=== PATIENT | female | born 1950 | race Caucasian/White ===

== ENCOUNTER 2024-03-01 21:57 | Emergency (ER) | payer MEDICARE, OTHER ==
--- NOTE | 2024-03-01 22:07 | ED ---
Fall HPI - General Stated Complaint: Fall Time Seen by Provider: 03/01/24 22:07 Source: patient, RN notes reviewed - History of Present Illness Initial Comments: This is a 74-year-old female with a past medical history of congestive heart failure, atrial fibrillation not on blood thinners, and COPD who presents the emergency department via EMS for chief complaint of a fall. Patient states that she was in her kitchen and felt her legs give way that has happened in the past while she was using her walker and fell forward striking her head. She states that she called out for help where her neighbor heard her and immediately called EMS. Patient was transported via EMS with c-collar in place. Patient denies loss of consciousness at the time of the fall. She denies extremity injuries or pain. She is endorsing a mild posterior head pain with headache. - Related Data Allergies Allergy/AdvReac Type Severity Reaction Status Date / Time No Known Allergies Allergy Verified 10/12/21 21:02 Review of Systems ROS Statement: Those systems with pertinent positive or pertinent negative responses have been documented in the HPI. ROS Other: All systems not noted in ROS Statement are negative. Past Medical History Past Medical History: COPD, Diabetes Mellitus History of Any Multi-Drug Resistant Organisms: None Reported Past Surgical History: Orthopedic Surgery Additional Past Surgical History / Comment(s): carpal tunnel Past Psychological History: No Psychological Hx Reported Smoking Status: Never smoker Past Alcohol Use History: None Reported Past Drug Use History: None Reported General Exam General appearance: alert, in no apparent distress, obese Eye exam: Present: normal appearance, PERRL, EOMI. Absent: scleral icterus, conjunctival injection, periorbital swelling ENT exam: Present: normal exam, mucous membranes moist Neck exam: Present: normal inspection. Absent: tenderness, meningismus, lymphadenopathy Respiratory exam: Present: normal lung sounds bilaterally. Absent: respiratory distress, wheezes, rales, rhonchi, stridor Cardiovascular Exam: Present: regular rate, normal rhythm, bradycardia, normal heart sounds. Absent: systolic murmur, diastolic murmur, rubs, gallop, clicks GI/Abdominal exam: Present: soft, normal bowel sounds. Absent: distended, tenderness, guarding, rebound, rigid Extremities exam: Present: normal inspection, full ROM, normal capillary refill, pedal edema, other (bilateral LE 2+ edema). Absent: tenderness, joint swelling, calf tenderness Back exam: Present: normal inspection Neurological exam: Present: alert, oriented X3, CN II-XII intact Skin exam: Present: warm, dry, intact, normal color. Absent: rash Course Vital Signs 03/01/24 03/02/24 03/02/24 22:11 00:19 02:21 Temperature 97.9 F Pulse Rate 39 L 37 L 45 L Respiratory 17 17 18 Rate Blood Pressure 94/57 93/42 113/55 O2 Sat by Pulse 96 93 L 98 Oximetry Medical Decision Making - Medical Decision Making Was pt. sent in by a medical professional or institution (, PA, HISTOLOGY SUPERVISOR, urgent care, hospital, or longterm...) When possible be specific @ -No Did you speak to anyone other than the patient for history (EMS, parent, family, police, friend...)? What history was obtained from this source @ -Patient's daughter is at bedside stating that patient was recently admitted to the hospital and is followed up outpatient with her primary care provider and museum archivist where she will undergo Watchman procedure placement scheduled in April and is currently not on blood thinners. Additionally, patient's daughter at bedside states that the patient has a history of bradycardia and hypotension is this is normal for her. Patient has been taking her medications as prescribed. Did you review nursing and triage notes (agree or disagree)? Why? @ -I reviewed and agree with nursing and triage notes Were old charts reviewed (outside hosp., previous admission, EMS record, old EKG, old radiological studies, urgent care reports/EKG's, longterm records)? Report findings @ -No old charts were reviewed Differential Diagnosis (chest pain, altered mental status, abdominal pain women, abdominal pain men, vaginal bleeding, weakness, fever, dyspnea, syncope, headache, dizziness, GI bleed, back pain, seizure, CVA, palpatations, mental health, musculoskeletal)? @ -Contusion, concussion, intracranial hemorrhage, subdural hematoma, skull fracture, this list is not all inclusive EKG interpreted by me (3pts min.). @ -Pleated at 2249 atrial fibrillation with slow ventricular response ventricular rate of 38, QRS 98, QTc 497. No acute signs of ischemia. There is minimal changes compared to previous EKG completed X-rays interpreted by me (1pt min.). @ -None done CT interpreted by me (1pt min.). @ -CT of the head and cervical spine without contrast reveals no evidence of acute hemorrhage and no cervical fracture or subluxation U/S interpreted by me (1pt. min.). @ -None done What testing was considered but not performed or refused? (CT, X-rays, U/S, labs)? Why? @ -None What meds were considered but not given or refused? Why? @ -None Did you discuss the management of the patient with other professionals (professionals i.e. , PA, HISTOLOGY SUPERVISOR, lab, RT, psych nurse, clinical social work therapist, soubrette, teacher, highway patrol officer, upper caser)? Give summary @ -No Was smoking cessation discussed for >3mins.? @ -No Was critical care preformed (if so, how long)? @ -No Were there social determinants of health that impacted care today? How? (Homelessness, low income, unemployed, alcoholism, drug addiction, transportation, low edu. Level, literacy, decrease access to med. care, skilled nursing, rehab)? @ -No Was there de-escalation of care discussed even if they declined (Discuss DNR or withdrawal of care, Hospice)? DNR status @ -No What co-morbidities impacted this encounter? (DM, HTN, Smoking, COPD, CAD, Cancer, CVA, ARF, Chemo, Hep., AIDS, mental health diagnosis, sleep apnea, morbid obesity)? @ -None Was patient admitted / discharged? Hospital course, mention meds given and route, prescriptions, significant lab abnormalities, going to OR and other p ertinent info. @ -Discharge. 74-year-old female with a fall. Patient presents via EMS with c- collar in place. Patient's vitals reveal a hypotension and bradycardia. Discussed with patient's daughter at bedside states that this is at baseline for the patient. Patient is denying chest pain, shortness of breath, difficulty breathing, headaches blurry or double vision. Neurological examination no acute findings. CT imaging of the head and neck negative for acute process. Patient is stable for discharge at this time. discussed with Dr. Luna Undiagnosed new problem with uncertain prognosis? @ -No Drug Therapy requiring intensive monitoring for toxicity (Heparin, Nitro, Insulin, Cardizem)? @ -No Were any procedures done? @ -No Diagnosis/symptom? @ -Fall Acute, or Chronic, or Acute on Chronic? @ -Acute Uncomplicated (without systemic symptoms) or Complicated (systemic symptoms)? @ -uncomplicated Side effects of treatment? @ -No Exacerbation, Progression, or Severe Exacerbation? @ -No Poses a threat to life or bodily function? How? (Chest pain, [place], [place], pneumonia, PE, COPD, DKA, ARF, appy, cholecystitis, CVA, Diverticulitis, Homicidal, Suicidal, threat to staff... and all critical care pts) @ -No Disposition Clinical Impression: Fall Disposition: HOME SELF-CARE Condition: Good Instructions (If sedation given, give patient instructions): Fall Prevention for Older Adults (ED) Additional Instructions: Return to the emergency department for any new or worsening symptoms. Is patient prescribed a controlled substance at d/c from ED?: No Referrals: Nahid Byrne MD [Primary Care Provider] - 1-2 days Time of Disposition: 01:45
[2024-03-01 22:17] VITALS: TEMP 97.9
--- NOTE | 2024-03-02 01:31 | CT ---
EXAM: CT Head Without Intravenous Contrast CLINICAL HISTORY: ITS.REASON CT Reason: fall, head/neck pain TECHNIQUE: Axial computed tomography images of the head/brain without intravenous contrast. CTDI is 45.2 mGy and DLP is 1097 mGy-cm. This CT exam was performed using one or more of the following dose reduction techniques: automated exposure control, adjustment of the mA and/or kV according to patient size, and/or use of iterative reconstruction technique. COMPARISON: No relevant prior studies available. FINDINGS: Brain: No hemorrhage or mass effect. Ventricles: No hydrocephalus. Bones/joints: Unremarkable. Soft tissues: Unremarkable. Sinuses: No air fluid level. Mastoid air cells: Clear. IMPRESSION: No acute hemorrhage, hydrocephalus, or mass effect. EXAM: CT Cervical Spine Without Intravenous Contrast CLINICAL HISTORY: ITS.REASON CT Reason: fall, head/neck pain TECHNIQUE: Axial computed tomography images of the cervical spine without intravenous contrast. CTDI is 8.8 mGy and DLP is 225.9 mGy-cm. This CT exam was performed using one or more of the following dose reduction techniques: automated exposure control, adjustment of the mA and/or kV according to patient size, and/or use of iterative reconstruction technique. COMPARISON: No relevant prior studies available. FINDINGS: Vertebrae: No acute fracture. Discs/spinal canal/neural foramina: degenerative changes. Soft tissues: No prevertebral swelling. IMPRESSION: No acute fracture or subluxation.
[2024-03-02 02:22] VITALS: BP 113/55; PULSE 45; RESP 18
== END 2024-03-02 02:22 | disposition home or self-care (01) ==
LOC: EC 21:57
CPT/HCPCS: 70450; 72125; 93005; 99284

== ENCOUNTER 2024-03-04 18:18 | Emergency (ER) | payer MEDICARE, OTHER ==
--- NOTE | 2024-03-04 18:28 | ED ---
General Adult HPI - General Stated complaint: Fall-Back Pain Time Seen by Provider: 03/04/24 18:19 Source: patient, EMS, RN notes reviewed Mode of arrival: EMS Limitations: no limitations - History of Present Illness Initial comments: Patient is a 74-year-old female presenting to the emergency department with complaints of pain in her tailbone. Patient fell on her tailbone while doing a puzzle. Patient complains of significant discomfort of this area. No other area of discomfort or concern. No head injury or loss of consciousness. No weakness. No incontinence or retention of bowel or bladder. - Related Data Allergies Allergy/AdvReac Type Severity Reaction Status Date / Time No Known Allergies Allergy Verified 03/04/24 19:40 Review of Systems ROS Statement: Those systems with pertinent positive or pertinent negative responses have been documented in the HPI. ROS Other: All systems not noted in ROS Statement are negative. Constitutional: Denies: fever Eyes: Denies: eye pain ENT: Denies: ear pain Respiratory: Denies: cough, dyspnea Cardiovascular: Denies: chest pain Gastrointestinal: Denies: abdominal pain Musculoskeletal: Reports: as per HPI Neurological: Denies: headache, weakness Past Medical History Past Medical History: COPD, Diabetes Mellitus History of Any Multi-Drug Resistant Organisms: None Reported Past Surgical History: Orthopedic Surgery Additional Past Surgical History / Comment(s): carpal tunnel Past Psychological History: No Psychological Hx Reported Smoking Status: Never smoker Past Alcohol Use History: None Reported Past Drug Use History: None Reported General Exam Limitations: no limitations General appearance: alert, in no apparent distress Head exam: Present: normocephalic Eye exam: Present: normal appearance Neck exam: Present: normal inspection Respiratory exam: Present: normal lung sounds bilaterally Cardiovascular Exam: Present: regular rate, normal rhythm GI/Abdominal exam: Present: soft. Absent: tenderness Extremities exam: Present: normal inspection Back exam: Present: tenderness (Sacral tenderness) Neurological exam: Present: alert. Absent: motor sensory deficit Expanded Motor strength exam: RLE: 5, LLE: 5 Psychiatric exam: Present: normal affect, normal mood Skin exam: Present: normal color Course Vital Signs 03/04/24 19:31 Pulse Rate 78 Respiratory 16 Rate Blood Pressure 120/62 O2 Sat by Pulse 93 L Oximetry Medical Decision Making - Medical Decision Making Was pt. sent in by a medical professional or institution (, PA, BUMP GRADER OPERATOR, urgent care, hospital, or snf...) When possible be specific @ -No Did you speak to anyone other than the patient for history (EMS, parent, family, police, friend...)? What history was obtained from this source @ -Daughter arrives and states that patient has had chronic bleeding and would like that evaluated as well. Patient has been previously admitted more than 1 time [facility] Did you review nursing and triage notes (agree or disagree)? Why? @ -I reviewed and agree with nursing and triage notes Were old charts reviewed (outside hosp., previous admission, EMS record, old EKG, old radiological studies, urgent care reports/EKG's, snf records)? Report findings @ -No old charts were reviewed Differential Diagnosis (chest pain, altered mental status, abdominal pain women, abdominal pain men, vaginal bleeding, weakness, fever, dyspnea, syncope, headache, dizziness, GI bleed, back pain, seizure, CVA, palpatations, mental health, musculoskeletal)? @ -Differential Musculoskeletal Muscular strain, contusion, ligament sprain, fracture, arthritis, septic arthritis, bursitis, cellulitis, muscle spasm, nerve compression, DVT, arterial occlusion, herpes zoster, electrolyte abnormality, tumor.... This is not meant to be in all inclusive list differential GI Bleed: Esophageal varices, aortoenteric fistula, Joy-Cote, gastritis, peptic ulcer disease, diverticulosis, inflammatory bowel disease, hemorrhoids, fissure, colitis, malignancy, Meckel's diverticulum, this is not meant to be an all-incl usive list. EKG interpreted by me (3pts min.). @ -As above X-rays interpreted by me (1pt min.). @ -X-ray of pelvis and sacrum show questionable sacral fracture CT interpreted by me (1pt min.). @ -None done U/S interpreted by me (1pt. min.). @ -None done What testing was considered but not performed or refused? (CT, X-rays, U/S, labs)? Why? @ -None What meds were considered but not given or refused? Why? @ -None Did you discuss the management of the patient with other professionals (bette german i.e. , SEAN, BUMP GRADER OPERATOR, lab, RT, psych nurse, sr. social media & mobile manager, intellectual property lawyer, teacher, staff submarine warfare officer, counter caser)? Give summary @ -Case was discussed with Dr. fierro and he did review patient's chart. He moglobin is actually improved from previous labs. BUN and creatinine are stable. He would feel comfortable with discharge with the patient Was smoking cessation discussed for >3mins.? @ -No Was critical care preformed (if so, how long)? @ -No Were there social determinants of health that impacted care today? How? (Homelessness, low income, unemployed, alcoholism, drug addiction, transportation, low edu. Level, literacy, decrease access to med. care, nursing home, rehab)? @ -No Was there de-escalation of care discussed even if they declined (Discuss DNR or withdrawal of care, Hospice)? DNR status @ -No What co-morbidities impacted this encounter? (DM, HTN, Smoking, COPD, CAD, Cancer, CVA, ARF, Chemo, Hep., AIDS, mental health diagnosis, sleep apnea, morbid obesity)? @ -None Was patient admitted / discharged? Hospital course, mention meds given and route, prescriptions, significant lab abnormalities, going to OR and other pertinent info. @ -Patient reevaluated and resting comfortably in bed. Patient is updated on results. Patient does express interest in being discharged. Patient will be discharged and recommended close follow-up with Dr. Guzman, return if worsening symptoms. Undiagnosed new problem with uncertain prognosis? @ -No Drug Therapy requiring intensive monitoring for toxicity (Heparin, Nitro, Insulin, Cardizem)? @ -No Were any procedures done? @ -No Diagnosis/symptom? @ -Sacral fracture Acute, or Chronic, or Acute on Chronic? @ -Acute Uncomplicated (without systemic symptoms) or Complicated (systemic symptoms)? @ -Complicated with chronic rectal bleeding Side effects of treatment? @ -No Exacerbation, Progression, or Severe Exacerbation? @ -No Poses a threat to life or bodily function? How? (Chest pain, [place], [place], pneumonia, PE, COPD, DKA, ARF, appy, cholecystitis, CVA, Diverticulitis, Homicidal, Suicidal, threat to staff... and all critical care pts) @ -No - Lab Data Result diagrams: 03/04/24 19:44 03/04/24 19:44 Lab Results 10/01/24 10/01/24 10/01/24 Range/Units 19:44 19:44 20:46 WBC 13.2 H (3.8-10.6) k/uL RBC 3.57 L (3.80-5.40) m/uL Hgb 11.5 (11.4-16.0) gm/dL Hct 35.6 (34.0-46.0) % MCV 99.6 (80.0-100.0) fL MCH 32.2 (25.0-35.0) pg MCHC 32.3 (31.0-37.0) g/dL RDW 15.0 (11.5-15.5) % Plt Count 172 (150-450) k/uL MPV 7.6 Neutrophils % 89 % Lymphocytes % 5 % Monocytes % 5 % Eosinophils % 1 % Basophils % 0 % Neutrophils # 11.8 H (1.3-7.7) k/uL Lymphocytes # 0.6 L (1.0-4.8) k/uL Monocytes # 0.6 (0-1.0) k/uL Eosinophils # 0.1 (0-0.7) k/uL Basophils # 0.0 (0-0.2) k/uL Hypochromasia Slight Macrocytosis Slight Sodium 139 (137-145) mmol/L Potassium 5.5 H (3.5-5.1) mmol/L Chloride 105 (98-107) mmol/L Carbon Dioxide 26 (22-30) mmol/L Anion Gap 8 mmol/L BUN 55 H (7-17) mg/dL Creatinine 1.94 H (0.52-1.04) mg/dL Est GFR (CKD-EPI)AfAm 29 (>60 ml/min/1.73 sqM) Est GFR (CKD-EPI)NonAf 25 (>60 ml/min/1.73 sqM) Glucose 137 H (74-99) mg/dL Calcium 9.8 (8.4-10.2) mg/dL Total Bilirubin 1.0 (0.2-1.3) mg/dL AST 40 H (14-36) U/L ALT 15 (4-34) U/L Alkaline Phosphatase 58 (38-126) U/L Total Protein 7.3 (6.3-8.2) g/dL Albumin 4.2 (3.5-5.0) g/dL Stool Occult Blood Positive H (Negative) Disposition Clinical Impression: Sacral fracture, Fall Disposition: HOME SELF-CARE Condition: Stable Instructions (If sedation given, give patient instructions): Fall Prevention for Older Adults (ED), Sacral Fracture (ED), Gastrointestinal Bleeding (ED) Additional Instructions: Please do follow-up with Dr. Fierro the next day or 2 for recheck. Return for increased bleeding, weakness, worsening or changing symptoms or any other concerns. Ice to sacral region. Use inflatable doughnut to sit on. Is patient prescribed a controlled substance at d/c from ED?: No Referrals: Nahid Fierro MD [Primary Care Provider] - 1-2 days Time of Disposition: 21:16
[2024-03-04] MEDS: HYDROmorphone 1 MG/ML 1 ML SYRINGE IM STA (19:46)
[2024-03-04 19:52] LABS: Basophils % (A) 0 %; Eosinophils # (A) 0.1 k/uL (0-0.7); Eosinophils % (A) 1 %; HCT 35.6 % (34.0-46.0); HGB 11.5 gm/dL (11.4-16.0); Hypochromasia Slight; Lymphocytes # (A) 0.6 k/uL (1.0-4.8); Lymphocytes % (A) 5 %; MCH 32.2 pg (25.0-35.0); MCHC 32.3 g/dL (31.0-37.0); MCV 99.6 fL (80.0-100.0); Macrocytosis Slight; Mean Platelet Volume 7.6; Monocytes # (A) 0.6 k/uL (0-1.0); Monocytes % (A) 5 %; Neutrophils # (A) 11.8 k/uL (1.3-7.7); Neutrophils % (A) 89 %; Platelet Count 172 k/uL (150-450); RBC 3.57 m/uL (3.80-5.40); WBC 13.2 k/uL (3.8-10.6)
[2024-03-04 20:00] LABS: ALT 15 U/L (4-34); AST 40 U/L (14-36); African American GFR (CKD) 29 (>60 ml/min/1.73 sqM); Albumin 4.2 g/dL (3.5-5.0); Alkaline Phosphatase 58 U/L (38-126); Anion Gap 8 mmol/L; Blood Urea Nitrogen 55 mg/dL (7-17); Calcium 9.8 mg/dL (8.4-10.2); Carbon Dioxide 26 mmol/L (22-30); Chloride 105 mmol/L (98-107); Glucose 137 mg/dL (74-99); Non-African American GFR(CKD) 25 (>60 ml/min/1.73 sqM); Potassium 5.5 mmol/L (3.5-5.1); Sodium 139 mmol/L (137-145); Total Protein 7.3 g/dL (6.3-8.2)
--- NOTE | 2024-03-04 20:27 | XR ---
EXAMINATION TYPE: XR pelvis AP view DATE OF EXAM: 03/04/2024 COMPARISON: None HISTORY: Pain, fall TECHNIQUE: AP pelvis FINDINGS: Sacroiliac joints and symphysis pubis are normal. Femoral heads articulate with the acetabu lum. No acute fractures or dislocations evident. Normal bowel gas is present. IMPRESSION: 1. No acute osseous abnormality. [facility], Workstation: [facility], 03/04/2024 8:24 PM
--- NOTE | 2024-03-04 20:29 | XR ---
EXAMINATION TYPE: XR sacrum coccyx DATE OF EXAM: 03/04/2024 COMPARISON: AP pelvis HISTORY: Fall, pain TECHNIQUE: 3 views sacrum and coccyx FINDINGS: Mild degenerative changes at the bilateral sacroiliac joints appear to be present. No spicu lated degenerative disc change and vacuum phenomenon at L5-S1 disc level In the lateral projection there is some angulation of the distal sacrum. Correlate with location of p atient's pain. Sacral fracture could be considered. The coccyx appears intact. IMPRESSION: 1. Clinical correlation recommended for distal sacral fracture [facility], Workstation: [facility], 03/04/2024 8:27 PM
[2024-03-04 22:06] VITALS: BP 113/74; PULSE 70; RESP 18; TEMP 98.8
== END 2024-03-04 22:24 | disposition home or self-care (01) ==
LOC: EC 18:18
CPT/HCPCS: 36415; 72170; 72220; 80053; 82272; 85025; 96372; 99283

== ENCOUNTER 2024-04-26 03:20 | Inpatient (IN) | payer MEDICARE, OTHER ==
--- NOTE | 2024-04-26 03:33 | ED ---
General Adult HPI - General Chief complaint: Fall Stated complaint: Fall Time Seen by Provider: 04/26/24 03:22 Source: patient, EMS Mode of arrival: EMS - History of Present Illness Initial comments: Soniya is a pleasant 74-year-old female is brought to the emergency department today by EMS for evaluation of head injury. Patient reports that she was standing in front of her attempting to put on a brief when she lost her balance fell backwards and struck her head on the toilet. Patient reports pain in the left posterior head and into her neck. Patient believes she is on a blood thinner though she does not know what medication she takes and review of previous chart states that she was not on a blood thinner. - Related Data Allergies Allergy/AdvReac Type Severity Reaction Status Date / Time No Known Allergies Allergy Verified 03/04/24 19:40 Review of Systems ROS Statement: Those systems with pertinent positive or pertinent negative responses have been documented in the HPI. ROS Other: All systems not noted in ROS Statement are negative. Past Medical History Past Medical History: COPD, Diabetes Mellitus History of Any Multi-Drug Resistant Organisms: None Reported Past Surgical History: Orthopedic Surgery Additional Past Surgical History / Comment(s): carpal tunnel Past Psychological History: No Psychological Hx Reported Smoking Status: Never smoker Past Alcohol Use History: None Reported Past Drug Use History: None Reported General Exam - General Exam Comments Initial Comments: Physical Exam GENERAL: Patient is well-developed and well-nourished. Patient is nontoxic and well-hydrated and is in no distress. HENT: Normocephalic, Atraumatic. EYES: PERRL, EOMI PULMONARY: Unlabored respirations. CARDIOVASCULAR: RRR Warm and well perfused extremities ABDOMEN: Non-distended SKIN: No rashes or bruising : Deferred NEUROLOGIC: Alert and oriented Normal speech Normal gait MUSCULOSKELETAL: Moving all extremities with no apparent injury PSYCHIATRIC: No SI/HI Course Vital Signs 04/26/24 04/26/24 03:24 05:07 Temperature 100.1 F H 98.6 F Pulse Rate 74 70 Respiratory 16 18 Rate Blood Pressure 139/65 138/57 O2 Sat by Pulse 97 98 Oximetry Medical Decision Making - Medical Decision Making Was pt. sent in by a medical professional or institution (, PA, [employer], urgent care, hospital, or penitentiary...) When possible be specific @ -No Did you speak to anyone other than the patient for history (EMS, parent, family, police, friend...)? What history was obtained from this source @ -EMS Did you review nursing and triage notes (agree or disagree)? Why? @ -I reviewed and agree with nursing and triage notes Were old charts reviewed (outside hosp., previous admission, EMS record, old EKG, old radiological studies, urgent care reports/EKG's, penitentiary records)? Report findings @ -No old charts were reviewed Differential Diagnosis (chest pain, altered mental status, abdominal pain women, abdominal pain men, vaginal bleeding, weakness, fever, dyspnea, syncope, headache, dizziness, GI bleed, back pain, seizure, CVA, palpatations, mental health)? @ -Differential Fever: Pneumonia, viral URI, endocarditis, myocarditis, pericarditis, otitis, sinusitis, peritonsillar Abscess, retropharyngeal Abscess, epiglottitis, peritonitis, appendicitis, Myra cystitis, diverticulitis, hepatitis, colitis, UTI, PID, TOA, pyelonephritis, prostatitis, epididymitis, meningitis, encephalitis, pulmonary embolism, CVA, thyroid storm, pancreatitis, adrenal crisis, cavernous sinus thrombosis, this is not meant to be an all-inclusive list. EKG interpreted by me (3pts min.). @ -As above X-rays interpreted by me (1pt min.). @ -None done CT interpreted by me (1pt min.). @ -None done U/S interpreted by me (1pt. min.). @ -None done What testing was considered but not performed or refused? (CT, X-rays, U/S, labs)? Why? @ -None What meds were considered but not given or refused? Why? @ -None Did you discuss the management of the patient with other professionals (professionals i.e. , PA, [employer], lab, RT, psych nurse, social security benefits interviewer, immigration lawyer, teacher, correction officer, caseworker protective services)? Give summary @ -No Was smoking cessation discussed for >3mins.? @ -No Was critical care preformed (if so, how long)? @ -No Were there social determinants of health that impacted care today? How? (Homelessness, low income, unemployed, alcoholism, drug addiction, transportation, low edu. Level, literacy, decrease access to med. care, halfway, rehab)? @ -No Was there de-escalation of care discussed even if they declined (Discuss DNR or withdrawal of care, Hospice)? DNR status @ -No What co-morbidities impacted this encounter? (DM, HTN, Smoking, COPD, CAD, Cancer, CVA, ARF, Chemo, Hep., AIDS, mental health diagnosis, sleep apnea, morb id obesity)? @ -None Was patient admitted / discharged? Hospital course, mention meds given and rou te, prescriptions, significant lab abnormalities, going to OR and other pertinent info. @ -Admit the patient was seen and evaluated, history is obtained from the patient And EMS. Upon arrival the patient was febrile. Labs were obtained and reviewed. Patient has urinary infection. She was treated with IV fluids and antipyretics. Given her advanced age and general debility fall at home in the setting of having urinary infection I do not feel it is safe to send her home she will be placed in observation. Patient was given a dose of Rocephin in the ER for urinary tract infection. Undiagnosed new problem with uncertain prognosis? @ -No Drug Therapy requiring intensive monitoring for toxicity (Heparin, Nitro, Insulin, Cardizem)? @ -No Were any procedures done? @ -No Diagnosis/symptom? @ -Infection, fall at home Acute, or Chronic, or Acute on Chronic? @ -Default Uncomplicated (without systemic symptoms) or Complicated (systemic symptoms)? @ -Default Side effects of treatment? @ -No Exacerbation, Progression, or Severe Exacerbation? @ -No Poses a threat to life or bodily function? How? (Chest pain, [place], NH, pneumonia, PE, COPD, DKA, ARF, appy, cholecystitis, CVA, Diverticulitis, Homicidal, Suicidal, threat to staff... and all critical care pts) @ -No - Lab Data Result diagrams: 04/26/24 03:36 04/26/24 03:36 Lab Results 04/26/24 04/26/24 04/26/24 Range/Units 03:36 03:36 03:36 WBC 11.4 H (3.8-10.6) k/uL RBC 3.37 L (3.80-5.40) m/uL Hgb 10.7 L (11.4-16.0) gm/dL Hct 33.8 L (34.0-46.0) % MCV 100.5 H (80.0-100.0) fL MCH 31.7 (25.0-35.0) pg MCHC 31.6 (31.0-37.0) g/dL RDW 15.6 H (11.5-15.5) % Plt Count 130 L (150-450) k/uL MPV 8.6 Neutrophils % 87 % Lymphocytes % 4 % Monocytes % 6 % Eosinophils % 1 % Basophils % 0 % Neutrophils # 10.0 H (1.3-7.7) k/uL Lymphocytes # 0.5 L (1.0-4.8) k/uL Monocytes # 0.7 (0-1.0) k/uL Eosinophils # 0.1 (0-0.7) k/uL Basophils # 0.0 (0-0.2) k/uL Hypochromasia Slight Macrocytosis Slight PT 12.9 H (10.0-12.5) sec INR 1.2 H (<1.2) APTT 29.0 (22.0-30.0) sec Sodium 136 L (137-145) mmol/L Potassium 3.9 (3.5-5.1) mmol/L Chloride 101 (98-107) mmol/L Carbon Dioxide 29 (22-30) mmol/L Anion Gap 6 mmol/L BUN 35 H (7-17) mg/dL Creatinine 1.70 H (0.52-1.04) mg/dL Est GFR (CKD-EPI)AfAm 34 (>60 ml/min/1.73 sqM) Est GFR (CKD-EPI)NonAf 30 (>60 ml/min/1.73 sqM) Glucose 120 H (74-99) mg/dL Plasma Lactic Acid Surendra (0.7-2.0) mmol/L Calcium 8.5 (8.4-10.2) mg/dL Total Bilirubin 1.4 H (0.2-1.3) mg/dL AST 28 (14-36) U/L ALT 15 (4-34) U/L Alkaline Phosphatase 76 (38-126) U/L Total Protein 6.4 (6.3-8.2) g/dL Albumin 3.6 (3.5-5.0) g/dL Urine Color Urine Appearance (Clear) Urine pH (5.0-8.0) Ur Specific [place] (1.001-1.035) Urine Protein (Negative) Urine Glucose (UA) (Negative) Urine Ketones (Negative) Urine Blood (Negative) Urine Nitrite (Negative) Urine Bilirubin (Negative) Urine Urobilinogen (<2.0) mg/dL Ur Leukocyte Esterase (Negative) Urine RBC (0-5) /hpf Urine WBC (0-5) /hpf Urine WBC Clumps (None) /hpf Ur Squamous Epith Cells (0-4) /hpf Urine Bacteria (None) /hpf Urine Mucus (None) /hpf Influenza Type A (PCR) (Not Detectd) Influenza Type B (PCR) (Not Detectd) RSV (PCR) (Not Detectd) SARS-CoV-2 (PCR) (Not Detectd) 04/26/24 04/26/24 04/26/24 Range/Units 03:36 04:24 05:29 WBC (3.8-10.6) k/uL RBC (3.80-5.40) m/uL Hgb (11.4-16.0) gm/dL Hct (34.0-46.0) % MCV (80.0-100.0) fL MCH (25.0-35.0) pg MCHC (31.0-37.0) g/dL RDW (11.5-15.5) % Plt Count (150-450) k/uL MPV Neutrophils % % Lymphocytes % % Monocytes % % Eosinophils % % Basophils % % Neutrophils # (1.3-7.7) k/uL Lymphocytes # (1.0-4.8) k/uL Monocytes # (0-1.0) k/uL Eosinophils # (0-0.7) k/uL Basophils # (0-0.2) k/uL Hypochromasia Macrocytosis PT (10.0-12.5) sec INR (<1.2) APTT (22.0-30.0) sec Sodium (137-145) mmol/L Potassium (3.5-5.1) mmol/L Chloride (98-107) mmol/L Carbon Dioxide (22-30) mmol/L Anion Gap mmol/L BUN (7-17) mg/dL Creatinine (0.52-1.04) mg/dL Est GFR (CKD-EPI)AfAm (>60 ml/min/1.73 sqM) Est GFR (CKD-EPI)NonAf (>60 ml/min/1.73 sqM) Glucose (74-99) mg/dL Plasma Lactic Acid Surendra 1.3 (0.7-2.0) mmol/L Calcium (8.4-10.2) mg/dL Total Bilirubin (0.2-1.3) mg/dL AST (14-36) U/L ALT (4-34) U/L Alkaline Phosphatase (38-126) U/L Total Protein (6.3-8.2) g/dL Albumin (3.5-5.0) g/dL Urine Color Yellow Urine Appearance Cloudy H (Clear) Urine pH 5.5 (5.0-8.0) Ur Specific [place] 1.012 (1.001-1.035) Urine Protein 1+ H (Negative) Urine Glucose (UA) 4+ H (Negative) Urine Ketones 1+ H (Negative) Urine Blood Moderate H (Negative) Urine Nitrite Negative (Negative) Urine Bilirubin Negative (Negative) Urine Urobilinogen 2.0 (<2.0) mg/dL Ur Leukocyte Esterase Moderate H (Negative) Urine RBC 32 H (0-5) /hpf Urine WBC 92 H (0-5) /hpf Urine WBC Clumps Few H (None) /hpf Ur Squamous Epith Cells 2 (0-4) /hpf Urine Bacteria Moderate H (None) /hpf Urine Mucus Rare H (None) /hpf Influenza Type A (PCR) Not Detected (Not Detectd) Influenza Type B (PCR) Not Detected (Not Detectd) RSV (PCR) Not Detected (Not Detectd) SARS-CoV-2 (PCR) Not Detected (Not Detectd) Disposition Clinical Impression: Fall, UTI (urinary tract infection), Weakness Disposition: [facility] Condition: Stable Is patient prescribed a controlled substance at d/c from ED?: No Referrals: Nahid Byrne MD [Primary Care Provider] - 1-2 days
[2024-04-26 03:48] LABS: Basophils % (A) 0 %; Eosinophils # (A) 0.1 k/uL (0-0.7); Eosinophils % (A) 1 %; HCT 33.8 % (34.0-46.0); HGB 10.7 gm/dL (11.4-16.0); Hypochromasia Slight; Lymphocytes # (A) 0.5 k/uL (1.0-4.8); Lymphocytes % (A) 4 %; MCH 31.7 pg (25.0-35.0); MCHC 31.6 g/dL (31.0-37.0); MCV 100.5 fL (80.0-100.0); Macrocytosis Slight; Mean Platelet Volume 8.6; Monocytes # (A) 0.7 k/uL (0-1.0); Monocytes % (A) 6 %; Neutrophils % (A) 87 %; Platelet Count 130 k/uL (150-450); RBC 3.37 m/uL (3.80-5.40); RDW 15.6 % (11.5-15.5); WBC 11.4 k/uL (3.8-10.6)
[2024-04-26] MEDS: ACETAMINOPHEN TAB 500 MG TAB PO STA (03:51)
[2024-04-26 03:56] LABS: INR 1.2 (<1.2); Prothrombin Time 12.9 sec (10.0-12.5)
--- NOTE | 2024-04-26 03:56 | XR ---
EXAMINATION TYPE: XR chest 1V portable DATE OF EXAM: 04/26/2024 COMPARISON: NONE HISTORY: Fever TECHNIQUE: Single frontal view of the chest is obtained. FINDINGS: There is no focal air space opacity, pleural effusion, or pneumothorax seen. Cardiomegaly is present. Overlying EKG leads are seen. The osseous structures are intact. IMPRESSION: Cardiomegaly without acute pulmonary infiltrate. [facility], , 04/26/2024 3:53 AM
--- NOTE | 2024-04-26 04:03 | CT ---
EXAMINATION TYPE: CT brain cspine wo con DATE OF EXAM: 04/26/2024 COMPARISON: Prior trauma CT February 22, 2024 HISTORY: fall out of bed. CT DLP: 1578.2 mGycm. Automated Exposure Control for Dose Reduction was Utilized. TECHNIQUE: CT scan of the head and cervical spine are performed without contrast. FINDINGS: There is no acute intracranial hemorrhage, mass effect, or midline shift identified. The ventricles and sulci are within normal limits in size for patient's age. Aparicio-white matter different iation fairly well maintained. The calvarium is intact. Bilateral aphakia redemonstrated. The visuali zed sinuses are clear. Cervical spine is visualized in its entirety from C1 through upper thoracic levels and demonstrates s light scoliotic curvature without evidence of acute fracture or dislocation. Prevertebral soft tissu e appears within normal limits. The C1-C2 articulation is within normal limits on the coronal images . Vertebral body heights are maintained. There is mild to moderate disc space narrowing and moderate anterior spurring at C6-C7 level redemonstrated. Upper lungs show no pneumothorax. There is medial co urse to the carotid arteries bilaterally with moderate to severe carotid plaque right greater than le ft noted. A hypodense right thyroid nodule is redemonstrated. This can be better evaluated and charac terized with dedicated thyroid ultrasound if not known finding. IMPRESSION: 1. There is no acute fracture or dislocation evident in the cervical spine. 2. No acute intracranial hemorrhage or midline shift is seen. No significant change from prior. [facility], , 04/26/2024 4:01 AM
[2024-04-26 04:08] LABS: ALT 15 U/L (4-34); AST 28 U/L (14-36); African American GFR (CKD) 34 (>60 ml/min/1.73 sqM); Albumin 3.6 g/dL (3.5-5.0); Alkaline Phosphatase 76 U/L (38-126); Anion Gap 6 mmol/L; Blood Urea Nitrogen 35 mg/dL (7-17); Calcium 8.5 mg/dL (8.4-10.2); Carbon Dioxide 29 mmol/L (22-30); Chloride 101 mmol/L (98-107); Glucose 120 mg/dL (74-99); Non-African American GFR(CKD) 30 (>60 ml/min/1.73 sqM); Potassium 3.9 mmol/L (3.5-5.1); Sodium 136 mmol/L (137-145); Total Bilirubin 1.4 mg/dL (0.2-1.3); Total Protein 6.4 g/dL (6.3-8.2)
[2024-04-26 05:43] LABS: Appearance,Urine Cloudy (Clear); Bacteria,Urine Moderate /hpf; Bilirubin,Urine Negative (Negative); Blood,Urine Moderate (Negative); Color,Urine Yellow; Glucose,Urine (UA) 4+ (Negative); Ketones,Urine 1+ (Negative); Leukocyte Esterase,Urine Moderate (Negative); Mucus,Urine Rare /hpf; Nitrite,Urine Negative (Negative); PH, Urine 5.5 (5.0-8.0); Protein,Urine 1+ (Negative); RBC,Urine 32 /hpf (0-5); Specific Gravity,Urine 1.012 (1.001-1.035); Squamous Epithelial Cell,Urine 2 /hpf (0-4); WBC,Urine 92 /hpf (0-5)
[2024-04-26] MEDS: cefTRIAXone IN SWFI 1,000 MG/10 ML SYRINGE IVP STA (06:03)
[2024-04-26] MEDS ORDERED: NALOXONE 0.4 MG/ML 1 ML VIAL IV PRN (06:14)
--- NOTE | 2024-04-26 08:46 | P.HPIM ---
History of Present Illness This is a pleasant 74 years old female with past medical history of multiple medical problems including A-fib. Patient somewhat is forgetful about her history and medication. States that her daughter is her guardian who take care of her medication. She knows she takes blood thinner but she is not sure for what reason or what it is. She presents because of recurrent fall. She states she fell in her bathroom, she slipped and hit her head. She went to urinate and she has been complaining from discomfort urination and dysuria. Also patient was feeling short of breath of 1 day duration, with dry cough but no chest pain. Of note patient also was in the emergency room for recurrent fall on 02/25 and 03/04 this month. On admission patient denies abdominal complaints. No headache or dizziness currently but she told me she feels her left upper extremity was weak. She states she uses oxygen at home. And complains from mild pain in her left leg She denies smoking alcohol or illicit drugs. On admission she had low-grade fever of 100.1. Also she has mild leukocytosis of 11.4, she has 1 blood test 1 year ago with WBC 13.2 Hemoglobin 10.7, platelet count 130 Creatinine 1.7, previously was 1.91 time on 03/04/[address] is negative for acute process Chest x-ray is showing cardiomegaly with no vascular congestion Liver enzymes are unremarkable, INR is 1.2. EKG showing A-fib with a heart rate of 38 Urine analysis suspicious for UTI, urine culture is pending Influenza A and type B, RSV, SARS (coronavirus) are undetected She received 1 dose of Rocephin in the emergency room Review of Systems Review of systems CONSTITUTIONAL: No fever, no malaise, no fatigue. HEENT: No recent visual problems or hearing problems. Denied any sore throat. CARDIOVASCULAR: No orthopnea, PND, no palpitations, no syncope. PULMONARY: No shortness of breath, no cough, no hemoptysis. GASTROINTESTINAL: No diarrhea, no nausea, no vomiting, no abdominal pain. Normoactive bowel sounds. NEUROLOGICAL: No headaches, no weakness, no numbness. HEMATOLOGICAL: Denies any bleeding or petechiae. GENITOURINARY: Denies any burning micturition, frequency, or urgency. MUSCULOSKELETAL/RHEUMATOLOGICAL: Denies any joint pain, swelling, or any muscle pain. ENDOCRINE: Denies any polyuria or polydipsia. Past Medical History Past Medical History: COPD, Diabetes Mellitus History of Any Multi-Drug Resistant Organisms: None Reported Past Surgical History: Orthopedic Surgery Additional Past Surgical History / Comment(s): carpal tunnel Past Psychological History: No Psychological Hx Reported Smoking Status: Never smoker Past Alcohol Use History: None Reported Past Drug Use History: None Reported Medications and Allergies Allergies Allergy/AdvReac Type Severity Reaction Status Date / Time No Known Allergies Allergy Verified 03/04/24 19:40 Physical Exam Vitals: Vital Signs Temp Pulse Resp BP Pulse Ox 04/26/24 08:10 65 16 120/77 96 04/26/24 07:40 98.3 F 63 18 116/70 96 04/26/24 05:07 98.6 F 70 18 138/57 98 04/26/24 03:24 100.1 F H 74 16 139/65 97 Intake and Output 04/25/24 04/26/24 04/26/24 22:59 06:59 14:59 Other: Weight 112.037 kg -GENERAL: The patient is alert and oriented x3, not in any acute distress. Well developed, well nourished. Obese, looks tired mildly tachypneic. The patient is hard of hearing (she forgot her hearing aid) HEENT: Pupils are round and equally reacting to light. EOMI. No scleral icterus. No conjunctival pallor. Normocephalic, atraumatic. No pharyngeal erythema. No thyromegaly. CARDIOVASCULAR: S1 and S2 present. No murmurs, rubs, or gallops. PULMONARY: Chest is clear to auscultation, no wheezing , no crackles. ABDOMEN: Soft, nontender, nondistended, normoactive bowel sounds. No palpable organomegaly. MUSCULOSKELETAL: No joint swelling or deformity. -EXTREMITIES: No cyanosis, clubbing, or pedal edema. Bilateral leg redness, more on the left side with scratch wound, more warm and tender on the left leg NEUROLOGICAL: Gross neurological examination did not reveal any focal deficits. SKIN: No rashes. no petechiae. Results CBC & Chem 7: 04/26/24 03:36 04/26/24 03:36 Labs: Abnormal Lab Results - Last 24 Hours (Table) 04/26/24 04/26/24 04/26/24 Range/Units 03:36 03:36 03:36 WBC 11.4 H (3.8-10.6) k/uL RBC 3.37 L (3.80-5.40) m/uL Hgb 10.7 L (11.4-16.0) gm/dL Hct 33.8 L (34.0-46.0) % MCV 100.5 H (80.0-100.0) fL RDW 15.6 H (11.5-15.5) % Plt Count 130 L (150-450) k/uL Neutrophils # 10.0 H (1.3-7.7) k/uL Lymphocytes # 0.5 L (1.0-4.8) k/uL PT 12.9 H (10.0-12.5) sec INR 1.2 H (<1.2) Sodium 136 L (137-145) mmol/L BUN 35 H (7-17) mg/dL Creatinine 1.70 H (0.52-1.04) mg/dL Glucose 120 H (74-99) mg/dL Total Bilirubin 1.4 H (0.2-1.3) mg/dL Urine Appearance (Clear) Urine Protein (Negative) Urine Glucose (UA) (Negative) Urine Ketones (Negative) Urine Blood (Negative) Ur Leukocyte Esterase (Negative) Urine RBC (0-5) /hpf Urine WBC (0-5) /hpf Urine WBC Clumps (None) /hpf Urine Bacteria (None) /hpf Urine Mucus (None) /hpf 04/26/24 Range/Units 05:29 WBC (3.8-10.6) k/uL RBC (3.80-5.40) m/uL Hgb (11.4-16.0) gm/dL Hct (34.0-46.0) % MCV (80.0-100.0) fL RDW (11.5-15.5) % Plt Count (150-450) k/uL Neutrophils # (1.3-7.7) k/uL Lymphocytes # (1.0-4.8) k/uL PT (10.0-12.5) sec INR (<1.2) Sodium (137-145) mmol/L BUN (7-17) mg/dL Creatinine (0.52-1.04) mg/dL Glucose (74-99) mg/dL Total Bilirubin (0.2-1.3) mg/dL Urine Appearance Cloudy H (Clear) Urine Protein 1+ H (Negative) Urine Glucose (UA) 4+ H (Negative) Urine Ketones 1+ H (Negative) Urine Blood Moderate H (Negative) Ur Leukocyte Esterase Moderate H (Negative) Urine RBC 32 H (0-5) /hpf Urine WBC 92 H (0-5) /hpf Urine WBC Clumps Few H (None) /hpf Urine Bacteria Moderate H (None) /hpf Urine Mucus Rare H (None) /hpf Assessment and Plan Assessment: Recurrent fall at home over the last 1 to 2 weeks Acute urinary tract infection, symptomatic Acute cellulitis of the left lower extremity Sepsis with fever and leukocytosis A-fib with slow heart rate Patient also complaining from left upper extremity weakness, rule out TIA CHF, chronic Obesity with BMI 45.2 positive occult blood in stool Forgetfulness, possible dementia. Also patient has guardian Hard of hearing Plan: Start normal saline at 75 mL/h Continue with ceftriaxone 2 g daily and follow-up culture results Consult cardiology team given her recurrent falls and bradycardia in view of her A-fib Will consult neurology service given her reported weakness in the left upper extremity Follow-up creatinine and labs. Also monitor vitals Verify home medication Resume home medication once verified Further recommendation based on the clinical course GI prophylaxis: Pepcid DVT prophylaxis PT/OT Prognosis is guarded
[2024-04-26] MEDS: SODIUM CHLORIDE 0.9% 1,000 ML IV SCH (09:05)
--- NOTE | 2024-04-26 11:52 | P.CRDCN ---
History of Present Illness Consult date: 04/26/24 History of present illness: HISTORY OF PRESENTING ILLNESS Patient is a poor historian. Very drowsy. Not able to provide good history No significant medical records documented in [facility] system at this time. History is mostly obtained from the medical charts. Presented to the hospital because of recurrent fall. She was in the bathroom slipped and hit her head. She is also been complaining of urinary discomfort. She is having low-grade fever on admission, hemoglobin 10.7, REVIEW OF SYSTEMS Unable to be obtained PHYSICAL EXAMINATION Head: Normocephalic. Eyes: Sclerae nonicteric. Neck: Brisk carotid upstroke, no jugular venous distention. Lungs: Poor inspiratory effort, diminished breath sounds due to that. Mild crackles. Heart: Regular rate and rhythm, S1-S2, mild systolic murmur audible Abdomen: Soft nontender, positive bowel sounds. Extremities: 1+ pitting edema Neuro: Drowsy but arousable,. Detailed neuro exam was not performed. ASSESSMENT Recurrent falls at home Delirium Metabolic encephalopathy UTI Cellulitis left lower extremity Sepsis Frequent PVCs Unlikely atrial fibrillation at this time. SHELLY on CKD. Creatinine 1.9 on admission. PLAN Unsure if she has prior history of any reported atrial fibrillation. Admission ECG showed sinus bradycardia heart rate 39 beats minute, telemetry shows sinus rhythm with frequent PVCs. Maintain telemetry to look for any arrhythmias. Check magnesium, TSH, NT-proBNP, lipids, HbA1c Obtain updated echocardiogram Obtain medical records from outpatient cardiology clinic if there are any Agree with neurology consult. Consider nephrology consult. Lyle Torres MD, FACC, RPVI Thank you for allowing [facility] to participate in this patient's care. Feel free to reach out in case of any followup questions. Past Medical History Past Medical History: COPD, Diabetes Mellitus History of Any Multi-Drug Resistant Organisms: None Reported Past Surgical History: Orthopedic Surgery Additional Past Surgical History / Comment(s): carpal tunnel Past Psychological History: No Psychological Hx Reported Smoking Status: Never smoker Past Alcohol Use History: None Reported Past Drug Use History: None Reported Medications and Allergies Allergies Allergy/AdvReac Type Severity Reaction Status Date / Time No Known Allergies Allergy Verified 03/04/24 19:40 Physical Exam Vitals: Vital Signs Temp Pulse Resp BP Pulse Ox 04/26/24 11:03 74 18 131/95 96 04/26/24 10:02 69 20 127/73 95 04/26/24 09:18 70 20 103/72 96 04/26/24 09:01 68 16 97 04/26/24 08:10 65 16 120/77 96 04/26/24 07:40 98.3 F 63 18 116/70 96 04/26/24 05:07 98.6 F 70 18 138/57 98 04/26/24 03:24 100.1 F H 74 16 139/65 97 Intake and Output 04/25/24 04/26/24 04/26/24 22:59 06:59 14:59 Other: Weight 112.037 kg Results 04/26/24 03:36 04/26/24 03:36 Cardiac Enzymes 04/26/24 Range/Units 03:36 AST 28 (14-36) U/L Coagulation 04/26/24 Range/Units 03:36 PT 12.9 H (10.0-12.5) sec APTT 29.0 (22.0-30.0) sec CBC 04/26/24 Range/Units 03:36 WBC 11.4 H (3.8-10.6) k/uL RBC 3.37 L (3.80-5.40) m/uL Hgb 10.7 L (11.4-16.0) gm/dL Hct 33.8 L (34.0-46.0) % Plt Count 130 L (150-450) k/uL Comprehensive Metabolic Panel 04/26/24 Range/Units 03:36 Sodium 136 L (137-145) mmol/L Potassium 3.9 (3.5-5.1) mmol/L Chloride 101 (98-107) mmol/L Carbon Dioxide 29 (22-30) mmol/L BUN 35 H (7-17) mg/dL Creatinine 1.70 H (0.52-1.04) mg/dL Glucose 120 H (74-99) mg/dL Calcium 8.5 (8.4-10.2) mg/dL AST 28 (14-36) U/L ALT 15 (4-34) U/L Alkaline Phosphatase 76 (38-126) U/L Total Protein 6.4 (6.3-8.2) g/dL Albumin 3.6 (3.5-5.0) g/dL Current Medications Generic Name Dose Route Start Last Admin Trade Name Freq PRN Reason Stop Dose Admin Ceftriaxone Sodium 2 gm/ 50 mls @ 100 mls/hr 04/26/24 09:00 04/26/24 09:14 Sodium Chloride IVPB 100 mls/hr Q24HR AYLIN Administration Protocol Sodium Chloride 1,000 mls @ 75 mls/hr 04/26/24 08:45 04/26/24 09:05 Saline 0.9% IV 75 mls/hr .[id number] AYLIN Administration Naloxone HCl 0.2 mg 04/26/24 06:14 Naloxone 0.4 Mg/Ml 1 Ml Vial IV Q2M PRN Opioid Reversal Intake and Output 04/25/24 04/26/24 04/26/24 22:59 06:59 14:59 Other: Weight 112.037 kg 04/26/24 03:36 04/26/24 03:36
[2024-04-26 13:37] LABS: % Iron Saturation 3.2 (12.00-45.00)
[2024-04-26] MEDS ORDERED: DEXTROSE 50% SYRINGE 50 ML IVP PRN ×2 (14:53)
--- NOTE | 2024-04-26 15:05 | P.CNNES ---
History of Present Illness Consult date: 04/26/24 Requesting physician: Dheeraj Huang Reason for Consult: recurrent falls, right upper extremity weakness History of Present Illness: This is a 74-year-old woman who presented emergency department because of a fall. Patient states that she usually walks with a walker. Seems that she is trying to stand up and she just fell to her side on the left but denies any loss of consciousness. She denies any jerking of any extremity, urinary or bowel incontinence or tongue bite. Denies any history of seizure or strokes. She does complain that she was having urinary urgency and pain. She denies of any neck pain. Denies of any focal weakness. She does have underlying history of heart failure. Some of the workup during this hospital visit consisted of: I reviewed the lab workup. Her vitamin B12 is 576 Serum folate is 37.50 Serum glucose on presentation 120. Urine Analysis seems probable suggestive of acute urinary tract infection with leukocyte esterase moderate, urine white blood cells 92 and bacteria is moderat e. CT of the head and cervical spine is there is no acute fracture or dislocation of the cervical spine. No acute intracranial hemorrhage or midline shift. I personally reviewed the CT and agree with the report. Review of Systems As per HPI. Past Medical History Past Medical History: Atrial Fibrillation, Heart Failure, COPD, Diabetes Mellitus, GI Bleed, Hearing Disorder / Deafness, Memory Impairment, Osteoarthritis (OA), Renal Disease, Respiratory Disorder, Sleep Apnea/CPAP/BIPAP, Thyroid Disorder, Vascular Disorder Additional Past Medical History / Comment(s): c pap machine at home History of Any Multi-Drug Resistant Organisms: None Reported Past Surgical History: Appendectomy, Heart Catheterization With Stent, Hysterectomy, Orthopedic Surgery Additional Past Surgical History / Comment(s): carpal tunnel, watchman device february 2024 Past Anesthesia/Blood Transfusion Reactions: No Reported Reaction Date of Last Stent Placement:: unk Past Psychological History: Anxiety, Depression Smoking Status: Never smoker Past Alcohol Use History: None Reported Past Drug Use History: None Reported - Past Family History Father History Unknown: Yes Additional Family Medical History / Comment(s): Mother Family Medical History: Dementia Additional Family Medical History / Comment(s): alzheimers, blind, Medications and Allergies Home Medications Medication Instructions Recorded Confirmed Type Acetaminophen-Codeine 300-30mg 1 tab PO BID 04/26/24 04/26/24 History [Tylenol w/codeine #3] Amiodarone [Cordarone] 200 mg PO DAILY 04/26/24 04/26/24 History Ascorbic Acid [Vitamin C] 500 mg PO DAILY 04/26/24 04/26/24 History Aspirin EC [Ecotrin Low Dose] 81 mg PO DAILY 04/26/24 04/26/24 History Bumetanide [Bumex] 1 mg PO DAILY 04/26/24 04/26/24 History Clopidogrel [Plavix] 75 mg PO DAILY 04/26/24 04/26/24 History DULoxetine HCL [Cymbalta] 30 mg PO DAILY 04/26/24 04/26/24 History Divalproex [Depakote] 250 mg PO BID 04/26/24 04/26/24 History Docusate [Colace] 100 mg PO BID PRN 04/26/24 04/26/24 History Empagliflozin [Jardiance] 10 mg PO DAILY 04/26/24 04/26/24 History Ergocalciferol [Vitamin D2 (1250 1,250 mcg PO ALONSO 04/26/24 04/26/24 History Mcg = [id number] Iu)] Ferrous Sulfate [Feosol] 325 mg PO DAILY 04/26/24 04/26/24 History Folic Acid 1 mg PO DAILY 04/26/24 04/26/24 History Levothyroxine Sodium [Synthroid] 25 mcg PO DAILY 04/26/24 04/26/24 History Metoprolol Succinate (ER) [Toprol 50 mg PO DAILY 04/26/24 04/26/24 History Xl] Multivit-Min/Iron/Folic/Lutein 1 tab PO DAILY 04/26/24 04/26/24 History [Centrum Silver Women Tablet] Enola-3/Dha/Epa/Fish Oil [Enola-3 1 cap PO DAILY 04/26/24 04/26/24 History Fish Oil 1,000 mg Sfgl] Pantoprazole [Protonix] 40 mg PO AC-BID 04/26/24 04/26/24 History Rosuvastatin Calcium [Crestor] 5 mg PO DAILY 04/26/24 04/26/24 History allopurinoL [Zyloprim] 300 mg PO DAILY 04/26/24 04/26/24 History traZODone HCL [Desyrel] 50 mg PO HS 04/26/24 04/26/24 History Allergies Allergy/AdvReac Type Severity Reaction Status Date / Time No Known Allergies Allergy Verified 04/26/24 12:55 Physical Examination - Vital Signs Vital Signs: Vital Signs Temp Pulse Resp BP Pulse Ox 04/26/24 14:01 99.0 F 71 20 126/94 96 04/26/24 13:13 71 16 103/69 95 04/26/24 12:05 98.2 F 68 14 114/65 97 04/26/24 11:03 74 18 131/95 96 04/26/24 10:02 69 20 127/73 95 04/26/24 09:18 70 20 103/72 96 04/26/24 09:01 68 16 97 04/26/24 08:10 65 16 120/77 96 04/26/24 07:40 98.3 F 63 18 116/70 96 04/26/24 05:07 98.6 F 70 18 138/57 98 04/26/24 03:24 100.1 F H 74 16 139/65 97 Intake and Output 04/25/24 04/26/24 04/26/24 22:59 06:59 14:59 Other: Weight 112.037 kg 112.037 kg General: Lying in bed and is not in acute distress. Neuro: Somewhat limited because of patient hard of hearing but the patient is awake alert oriented to self stated that she is in the hospital and is oriented to time. Is following simple commands. No aphasia. The pupils are round equal reactive to light. Pupils are round 3 mm bilaterally. Visual covarrubias are full to confrontation. Extraocular movements intact no nystagmus. No facial weakness. No dysarthria. She is very hard of hearing that is her baseline. Motor strength is 4 out of 5 throughout Sensation is normal to touch Reflexes is 2 positive throughout. Plantars are mute. Results - Laboratory Findings CBC and BMP: 04/26/24 03:36 04/26/24 03:36 Abnormal Lab Findings: Abnormal Labs 04/26/24 04/26/24 04/26/24 03:36 03:36 03:36 WBC 11.4 H RBC 3.37 L Hgb 10.7 L Hct 33.8 L MCV 100.5 H RDW 15.6 H Plt Count 130 L Neutrophils # 10.0 H Lymphocytes # 0.5 L PT 12.9 H INR 1.2 H Sodium 136 L BUN 35 H Creatinine 1.70 H Glucose 120 H Iron % Saturation Total Bilirubin 1.4 H Folate Procalcitonin Urine Appearance Urine Protein Urine Glucose (UA) Urine Ketones Urine Blood Ur Leukocyte Esterase Urine RBC Urine WBC Urine WBC Clumps Urine Bacteria Urine Mucus 04/26/24 04/26/24 04/26/24 05:29 09:24 09:24 WBC RBC Hgb Hct MCV RDW Plt Count Neutrophils # Lymphocytes # PT INR Sodium BUN Creatinine Glucose Iron 11 L % Saturation 3.20 L Total Bilirubin Folate Procalcitonin 2.57 H Urine Appearance Cloudy H Urine Protein 1+ H Urine Glucose (UA) 4+ H Urine Ketones 1+ H Urine Blood Moderate H Ur Leukocyte Esterase Moderate H Urine RBC 32 H Urine WBC 92 H Urine WBC Clumps Few H Urine Bacteria Moderate H Urine Mucus Rare H 04/26/24 09:24 WBC RBC Hgb Hct MCV RDW Plt Count Neutrophils # Lymphocytes # PT INR Sodium BUN Creatinine Glucose Iron % Saturation Total Bilirubin Folate 37.50 H Procalcitonin Urine Appearance Urine Protein Urine Glucose (UA) Urine Ketones Urine Blood Ur Leukocyte Esterase Urine RBC Urine WBC Urine WBC Clumps Urine Bacteria Urine Mucus Assessment and Plan Assessment: This is a 74-year-old woman who present emergency department because of a fall. She has been complaining of urinary urgency and pain with urination. She denie s any loss of consciousness, jerking of any extremities tongue bite bowel or bladder incontinence. She does not have any underlying history of seizure or stroke. Her recent fall seems probable due to her underlying acute urinary tract infection Likely acute urinary tract infection Underlying very hard of hearing bilaterally Plan: 2D echo is ordered by the cardiology team is pending Hemoglobin A1c, TSH is ordered by the cardiology team I did not notice any focal weakness but seems the primary felt the patient has right upper extremity weakness therefore we will get an MRI of the brain and cervical spine. The patient has A-fib and cardiology is consulted. Will defer the rest of the medical management to primary and other specialist The plan discussed with the patient's nurse Thank you for the consultation Dr. Lipscomb will resume neurology service on 04/28/2024 A.M. Time with Patient: Greater than 30
[2024-04-26 17:24] LABS: Glucose,Whole Blood 146 mg/dL (70-110)
[2024-04-26] MEDS: INSULIN ASPART (NovoLOG) 100 UNIT/ML VIAL SQ SCH (17:41)
[2024-04-26 20:27] LABS: Glucose,Whole Blood 138 mg/dL (70-110)
[2024-04-26] MEDS: NYSTATIN 100,000 UNIT/GM POWD 15 GM TOPICAL SCH (21:05)
[2024-04-26] MEDS: ZINC OXIDE PASTE (Z-GUARD) 1 APPLIC TOPICAL PRN (21:05)
[2024-04-26 23:12] LABS: NT-Pro-B-Type Natriuretic Pept 11628 pg/mL (0-125)
[2024-04-26 23:21] LABS: Chol/HDL Ratio 2.53 Ratio; LDL Cholesterol,Calculated 119.6 mg/dL (0.0-131.0); Magnesium 1.8 mg/dL (1.5-2.4); VLDL Calculation 13.98 mg/dL (5.00-40.00)
[2024-04-27 07:59] LABS: Glucose,Whole Blood 140 mg/dL (70-110)
--- NOTE | 2024-04-27 08:06 | CA ---
Transthoracic Echo Report Name: Soniya Griffin Age: 74 Gender: F : 1950 Exam Date: 04/26/2024 15:18 Exam Location: [facility] Ht (in): 62 Wt (lb): 247 Ordering Physician: Lyle Torres MD ([id number]) Attending/Referring Phys: Interline Clerk Kita Cornejo RDCS Procedure CPT: Indications: chf Cardiac Hx: Technical Quality: Very technically difficult study Contrast 1: Definity Total Dose (mL): 2 Contrast 2: Total Dose (mL): MEASUREMENTS (Male / Female) Normal Values 2D ECHO LV Diastolic Diameter PLAX 5.1 cm 4.2 - 5.9 / 3.9 - 5.3 cm LV Systolic Diameter PLAX 3.6 cm IVS Diastolic Thickness 1.3 cm 0.6 - 1.0 / 0.6 - 0.9 cm LVPW Diastolic Thickness 1.3 cm 0.6 - 1.0 / 0.6 - 0.9 cm LV Relative Wall Thickness 0.5 RV Internal Dim ED PLAX 4.3 cm LVOT Diameter 2.1 cm LA Volume 77.1 cm??? 18 - 58 / 22 - 52 cm??? LA Volume Index 33.8 cm???/m??? 16 - 28 cm???/m??? DOPPLER AV Peak Velocity 153.5 cm/s AV Peak Gradient 9.4 mmHg AV Mean Velocity 104.9 cm/s AV Mean Gradient 5.0 mmHg AV Velocity Time Integral 27.5 cm LVOT Peak Velocity 77.3 cm/s LVOT Peak Gradient 2.4 mmHg LVOT Velocity Time Integral 12.0 cm LVOT Stroke Volume 41.6 cm??? LVOT Stroke Volume Index 19.9 ml/m??? LVOT Cardiac Index 1332.7 cm???/min???m??? AV Area Cont Eq vti 1.5 cm??? AV Area Cont Eq pk 1.7 cm??? MV Area PHT 5.8 cm??? Mitral E Point Velocity 125.2 cm/s Mitral A Point Velocity 32.6 cm/s Mitral E to A Ratio 3.8 MV Deceleration Time 130.7 ms MV E' Velocity 3.3 cm/s Mitral E to MV E' Ratio 38.5 TR Peak Velocity 331.3 cm/s TR Peak Gradient 43.9 mmHg Right Atrial Pressure 20.0 mmHg Pulmonary Artery Systolic Pressu 63.9 mmHg Right Ventricular Systolic Press 63.9 mmHg FINDINGS Left Ventricle Left ventricular cavity size normal. Mildly increased left ventricular wall thickness. Reduced global left ventricular systolic function. Flattened septum in diastole consistent with right ventricle volume overload. Left ventricular ejection fraction is estimated at 40 %. Grade 2 diastolic dysfunction. Right Ventricle Severe right ventricular dilatation. Reduced right ventricular global systolic function. Severe pulmonary hypertension. Right ventricular systolic pressure estimated at 64 mm hg. Right Atrium Right atrium not well visualized. Left Atrium Mildly increased left atrial volume. Mildly increased left atrial area. Mitral Valve Mitral valve not well visualized. Mild mitral annular calcification. No mitral stenosis. Mild mitral regurgitation. Aortic Valve Aortic valve not well visualized. No aortic stenosis. Tricuspid Valve Moderate tricuspid regurgitation. Pulmonic Valve Pulmonic valve not well visualized. Pericardium No pericardial effusion. Aorta Normal size aortic root and proximal ascending aorta. CONCLUSIONS LVEF 40% Grade II diastolic dysfunction Severe RV dilatation with signs of pressure and volume overload. RVSP 64 mmHg Mild mitral regurgitation Moderate to severe tricuspid regurgitation Severe pulmonary hypertension No pericardial effusion Previewed by: Dr Lyle Torres (Electronically Signed) Final Date: 27 April 2024 08:05
--- NOTE | 2024-04-27 08:55 | P.PN ---
Subjective Progress Note Date: 04/27/24 HISTORY OF PRESENTING ILLNESS Patient is a poor historian. Very drowsy. Not able to provide good history No significant medical records documented in [facility] system at this time. History is mostly obtained from the medical charts. Presented to the hospital because of recurrent fall. She was in the bathroom slipped and hit her head. She is also been complaining of urinary discomfort. She is having low-grade fever on admission, hemoglobin 10.7, Progress note April 27 No evidence of atrial fibrillation last 24 hours of telemetry monitoring. Echo showed signs of severe pulmonary hypertension. PHYSICAL EXAMINATION Head: Normocephalic. Eyes: Sclerae nonicteric. Neck: Brisk carotid upstroke, no jugular venous distention. Lungs: Poor inspiratory effort, diminished breath sounds due to that. Mild crackles. Heart: Regular rate and rhythm, S1-S2, mild systolic murmur audible Abdomen: Soft nontender, positive bowel sounds. Extremities: 1+ pitting edema Neuro: Drowsy but arousable,. Detailed neuro exam was not performed. ASSESSMENT Severe pulmonary hypertension with RV pressure and volume overload. Right-sided heart failure with chronic lower extremity swelling Recurrent falls at home Delirium Metabolic encephalopathy UTI Cellulitis left lower extremity Sepsis Frequent PVCs Unlikely atrial fibrillation at this time. SHELLY on CKD. Creatinine 1.9 on admission. Cardiac testing Echo showed LVEF 55%, severe R we will dilatation with signs of RV pressure and volume overload with severe pulmonary hypertension. PLAN Unsure if she has prior history of any reported atrial fibrillation. Admission ECG showed sinus bradycardia heart rate 39 beats minute, telemetry shows sinus rhythm with intermittent PVCs. I recommend obtaining medical records from the cardiology clinic. If no prior echo to compare with, and if this finding of severe pulmonary hypertension is new, consider right heart catheterization and lung VQ scan to evaluate etiology of severe pulm hypertension. Maintain telemetry to look for any arrhythmias. Agree with neurology consult. Consider nephrology consult. Objective - Vital Signs Vital signs: Vital Signs Temp 99.7 F H 04/27/24 08:00 Pulse 68 04/27/24 08:00 Resp 19 04/27/24 08:00 BP 154/71 04/27/24 08:00 Pulse Ox 96 04/27/24 08:00 FiO2 Intake & Output 04/26/24 04/27/24 04/27/24 18:59 06:59 18:59 Intake Total 640 825 Output Total 400 500 Balance 240 325 Weight 112.037 kg Intake: Intake, IV Titration 825 Amount Sodium Chloride 0.9% 1, 825 000 ml @ 75 mls/hr IV . [id number] [facility] Rx#:[id number] Oral 640 Output: Urine 400 500 Other: Voiding Method External Catheter External Catheter # Voids 1 - Labs CBC & Chem 7: 04/26/24 03:36 04/26/24 03:36 Labs: Abnormal Lab Results - Last 24 Hours (Table) 04/26/24 04/26/24 04/26/24 Range/Units 03:36 09:24 09:24 POC Glucose (mg/dL) (70-110) mg/dL Iron 11 L (50-170) UG/DL % Saturation 3.20 L (12.00-45.00) NT-Pro-B Natriuret Pep 47062 H (0-125) pg/mL Cholesterol 221.00 H (0.00-200.00) mg/dL HDL Cholesterol 87.40 H (40.00-60.00) mg/dL Folate (4.40-31.00) ng/mL Procalcitonin 2.57 H (0.02-0.50) ng/mL 04/26/24 04/26/24 04/26/24 Range/Units 09:24 17:20 20:21 POC Glucose (mg/dL) 146 H 138 H (70-110) mg/dL Iron (50-170) UG/DL % Saturation (12.00-45.00) NT-Pro-B Natriuret Pep (0-125) pg/mL Cholesterol (0.00-200.00) mg/dL HDL Cholesterol (40.00-60.00) mg/dL Folate 37.50 H (4.40-31.00) ng/mL Procalcitonin (0.02-0.50) ng/mL 04/27/24 Range/Units 07:50 POC Glucose (mg/dL) 140 H (70-110) mg/dL Iron (50-170) UG/DL % Saturation (12.00-45.00) NT-Pro-B Natriuret Pep (0-125) pg/mL Cholesterol (0.00-200.00) mg/dL HDL Cholesterol (40.00-60.00) mg/dL Folate (4.40-31.00) ng/mL Procalcitonin (0.02-0.50) ng/mL
[2024-04-27 09:25] LABS: Basophils # (A) 0.01 X 10*3/uL (0.00-0.10); Basophils % (A) 0.1 %; Eosinophils # (A) 0.01 X 10*3/uL (0.04-0.35); Eosinophils % (A) 0.1 %; HCT 31.8 % (37.2-46.3); HGB 9.7 g/dL (12.0-15.0); Lymphocytes % (A) 7.4 %; MCH 30.5 pg (27.0-32.0); MCHC 30.5 g/dL (32.0-37.0); Mean Platelet Volume 10.3 FL (9.5-12.2); Monocytes # (A) 0.56 X 10*3/uL (0.20-1.00); Monocytes % (A) 8.2 %; NRBC Per 100 WBC 0 X 10*3/uL (0.00-0.01); Neutrophils # (A) 5.71 X 10*3/uL (1.80-7.70); Neutrophils % (A) 84.1 %; Platelet Count 111 X 10*3/uL (140-440); RBC 3.18 X 10*6/uL (4.10-5.20); RDW 15.4 % (11.5-14.5)
[2024-04-27 10:23] LABS: Glucose,Whole Blood 133 mg/dL (70-110)
[2024-04-27 10:33] LABS: BUN/Creat Ratio 18.79 Ratio (12.00-20.00); Blood Urea Nitrogen 26.3 mg/dL (9.0-27.0); Carbon Dioxide 24.7 mmol/L (21.6-31.8); Chloride 98 mmol/L (96-109); Glucose 122 mg/dL (70-110); Potassium 3.9 mmol/L (3.5-5.5); Sodium 134 mmol/L (135-145)
[2024-04-27] MEDS: METOPROLOL TARTRATE 25 MG TAB PO SCH (10:38)
[2024-04-27] MEDS ORDERED: DOCUSATE 100 MG CAP PO PRN (10:38)
[2024-04-27] MEDS: ALBUTEROL NEBULIZED 2.5 MG/3 ML INHALATION SCH (11:07)
[2024-04-27] MEDS: DIVALPROEX 250 MG TABLET.DR PO SCH (11:25)
[2024-04-27] MEDS: LEVOTHYROXINE 25 MCG TAB PO SCH (11:25)
[2024-04-27] MEDS: ERGOCALCIFEROL 1,250 MCG (50,000 IU) CAPSULE PO SCH (11:25)
[2024-04-27] MEDS: RIVAROXABAN 15 MG TAB PO SCH (11:25)
[2024-04-27 12:29] LABS: Glucose,Whole Blood 128 mg/dL (70-110)
--- NOTE | 2024-04-27 12:44 | P.PN ---
Subjective This is a pleasant 74 years old female with past medical history of multiple medical problems including A-fib. Patient somewhat is forgetful about her history and medication. States that her daughter is her guardian who take care of her medication. She knows she takes blood thinner but she is not sure for what reason or what it is. She presents because of recurrent fall. She states she fell in her bathroom, she slipped and hit her head. She went to urinate and she has been complaining from discomfort urination and dysuria. Also patient was feeling short of breath of 1 day duration, with dry cough but no chest pain. Of note patient also was in the emergency room for recurrent fall on 02/25 and 03/04 this month. On admission patient denies abdominal complaints. No headache or dizziness currently but she told me she feels her left upper extremity was weak. She states she uses oxygen at home. And complains from mild pain in her left leg She denies smoking alcohol or illicit drugs. On admission she had low-grade fever of 100.1. Also she has mild leukocytosis of 11.4, she has 1 blood test 1 year ago with WBC 13.2 Hemoglobin 10.7, platelet count 130 Creatinine 1.7, previously was 1.91 time on 03/04/[address] is negative for acute process Chest x-ray is showing cardiomegaly with no vascular congestion Liver enzymes are unremarkable, INR is 1.2. EKG showing A-fib with a heart rate of 38 Urine analysis suspicious for UTI, urine culture is pending Influenza A and type B, RSV, SARS (coronavirus) are undetected She received 1 dose of Rocephin in the emergency room 04/27 Patient still with malaise, she is complaining from headache 8/10 on the left side of the head No new weakness or numbness. She is complaining from weakness in the left upper extremity but states this is for a while without specification. Patient is with atrial fibrillation and she was not on anticoagulation, she was on aspirin and Plavix at home. Xarelto was started this morning after I could not to send the monitor and started by graffiti cleaner Therefore we consulted neurology service who recommended MRI of the brain and cervical spine, we will follow-up the results. Currently on exam there is no weakness in the upper extremities but she has many risk factors, however patient already started on Xarelto Patient also with evidence of iron deficiency anemia. Will check occult blood in stool Echocardiogram showing cardiomyopathy with ejection fraction of 40% with severe right ventricular dilatation and moderate to severe tricuspid regurgitation and severe pulmonary hypertension at 64 mmHg Blood pressure is stable, she is mildly tachycardic She has low-grade fever Leukocytosis improved down to 6.8, hemoglobin 9.7 but also with evidence of hemodilution Platelet count 111. Creatinine improved 1.9 down to 1.4 We will hold fluids for now Bladder scan 167 mL Check chest x-ray in the morning Continue with ceftriaxone Also will consult general surgery and infectious disease Prognosis remains guarded Active Medications Generic Name Dose Route Start Last Admin Trade Name Freq PRN Reason Stop Dose Admin Acetaminophen/Codeine Phosphate 1 each 04/27/24 10:38 Acetaminophen-Codeine 300-30mg Tab PO BID PRN Pain Albuterol Sulfate 2.5 mg 04/27/24 10:45 04/27/24 11:07 Albuterol Nebulized 2.5 Mg/3 Ml INHALATION 2.5 mg RT-Q6H AYLIN Administration Allopurinol 300 mg 04/28/24 09:00 Allopurinol 300 Mg Tab PO DAILY AYLIN Dapagliflozin 5 mg 04/28/24 09:00 Dapagliflozin Propanediol 5 Mg Tablet PO DAILY AYLIN Dextrose/Water 25 ml 04/26/24 14:53 Dextrose 50% Syringe 50 Ml IVP PER PROTOCOL PRN Hypoglycemia Protocol Dextrose/Water 50 ml 04/26/24 14:53 Dextrose 50% Syringe 50 Ml IVP PER PROTOCOL PRN Hypoglycemia Protocol Divalproex Sodium 250 mg 04/27/24 11:15 04/27/24 11:25 Divalproex 250 Mg Tablet. PO 250 mg BID AYLIN Administration Docusate Sodium 100 mg 04/27/24 10:38 Docusate 100 Mg Cap PO BID PRN Constipation Duloxetine HCl 30 mg 04/28/24 09:00 Duloxetine Hcl 30 Mg Capsule. PO DAILY AYLIN Ergocalciferol 1,250 mcg 04/27/24 12:00 04/27/24 11:25 Ergocalciferol 1,250 Mcg (50,000 Iu) Capsule PO 1,250 mcg Nuñez@1200 AYLIN Administration Ferrous Sulfate 325 mg 04/28/24 09:00 Ferrous Sulfate 325 Mg Tab PO DAILY AYLIN Folic Acid 1 mg 04/28/24 09:00 Folic Acid 1 Mg Tab PO DAILY [facility] Ceftriaxone Sodium 2 gm/ 50 mls @ 100 mls/hr 04/26/24 09:00 04/27/24 08:01 Sodium Chloride IVPB 100 mls/hr Q24HR [facility] Administration Protocol Insulin Aspart 0 unit 04/26/24 17:30 04/27/24 12:30 Insulin Aspart (Novolog) 100 Unit/Ml Vial SQ Not Given ACHS [facility] Protocol Levothyroxine Sodium 25 mcg 04/27/24 11:15 04/27/24 11:25 Levothyroxine 25 Mcg Tab PO 25 mcg DAILY@0630 AYLIN Administration Metoprolol Tartrate 25 mg 04/27/24 10:30 04/27/24 10:38 Metoprolol Tartrate 25 Mg Tab PO 25 mg BID [facility] Administration Naloxone HCl 0.2 mg 04/26/24 06:14 Naloxone 0.4 Mg/Ml 1 Ml Vial IV Q2M PRN Opioid Reversal Nystatin 1 applic 04/26/24 21:00 04/27/24 08:01 Nystatin 100,000 Unit/Gm Powd 15 Gm TOPICAL 1 applic BID [facility] Administration Protocol Pantoprazole Sodium 40 mg 04/27/24 17:30 Pantoprazole 40 Mg Tablet PO AC-BID [facility] Petrolatum 1 applic 04/26/24 14:30 04/26/24 21:05 Zinc Oxide Paste (Z-Guard) 1 Applic TOPICAL 1 applic BID PRN Administration Wound Healing Protocol Rivaroxaban 15 mg 04/27/24 11:30 04/27/24 11:25 Rivaroxaban 15 Mg Tab PO 15 mg W/BRKFST [facility] Administration Protocol Trazodone HCl 50 mg 04/27/24 21:00 Trazodone Hcl 50 Mg Tab PO [facility] Objective - Vital Signs Vital signs: Vital Signs Temp 99.7 F H 04/27/24 08:00 Pulse 105 H 04/27/24 11:20 Resp 19 04/27/24 08:00 BP 154/71 04/27/24 08:00 Pulse Ox 96 04/27/24 08:00 FiO2 Intake & Output 04/26/24 04/27/24 04/27/24 18:59 06:59 18:59 Intake Total 640 825 240 Output Total 400 500 Balance 240 325 240 Weight 112.037 kg Intake: Intake, IV Titration 825 Amount Sodium Chloride 0.9% 1, 825 000 ml @ 75 mls/hr IV . [id number] [facility] Rx#:[id number] Oral 640 240 Output: Urine 400 500 Other: Voiding Method External Catheter External Catheter External Catheter # Voids 1 - Exam --GENERAL: The patient is alert and oriented x2-3, not in any acute distress. Well developed, well nourished. Generally weak with malaise HEENT: Pupils are round and equally reacting to light. EOMI. No scleral icterus. No conjunctival pallor. Normocephalic, atraumatic. No pharyngeal erythema. No thyromegaly. CARDIOVASCULAR: S1 and S2 present. No murmurs, rubs, or gallops. PULMONARY: Chest is clear to auscultation, no wheezing , no crackles. ABDOMEN: Soft, nontender, nondistended, normoactive bowel sounds. No palpable organomegaly. MUSCULOSKELETAL: No joint swelling or deformity. -EXTREMITIES: No cyanosis, clubbing, or pedal edema. Left leg is more red and warm to the right side suspicious for cellulitis NEUROLOGICAL: Gross neurological examination did not reveal any focal deficits. SKIN: No rashes. no petechiae. - Labs CBC & Chem 7: 04/27/24 05:19 04/27/24 05:19 Labs: Abnormal Lab Results - Last 24 Hours (Table) 04/26/24 04/26/24 04/26/24 Range/Units 03:36 09:24 09:24 RBC (4.10-5.20) X 10*6/uL Hgb (12.0-15.0) g/dL Hct (37.2-46.3) % MCV (80.0-97.0) FL MCHC (32.0-37.0) g/dL RDW (11.5-14.5) % Plt Count (140-440) X 10*3/uL Lymphocytes # (0.90-5.00) X 10*3/uL Eosinophils # (0.04-0.35) X 10*3/uL Sodium (135-145) mmol/L Est GFR (CKD-EPI) (>=60) Glucose (70-110) mg/dL POC Glucose (mg/dL) (70-110) mg/dL Calcium (8.7-10.3) mg/dL Iron 11 L (50-170) UG/DL % Saturation 3.20 L (12.00-45.00) NT-Pro-B Natriuret Pep 91799 H (0-125) pg/mL Cholesterol 221.00 H (0.00-200.00) mg/dL HDL Cholesterol 87.40 H (40.00-60.00) mg/dL Folate (4.40-31.00) ng/mL Procalcitonin 2.57 H (0.02-0.50) ng/mL 04/26/24 04/26/24 04/26/24 Range/Units 09:24 17:20 20:21 RBC (4.10-5.20) X 10*6/uL Hgb (12.0-15.0) g/dL Hct (37.2-46.3) % MCV (80.0-97.0) FL MCHC (32.0-37.0) g/dL RDW (11.5-14.5) % Plt Count (140-440) X 10*3/uL Lymphocytes # (0.90-5.00) X 10*3/uL Eosinophils # (0.04-0.35) X 10*3/uL Sodium (135-145) mmol/L Est GFR (CKD-EPI) (>=60) Glucose (70-110) mg/dL POC Glucose (mg/dL) 146 H 138 H (70-110) mg/dL Calcium (8.7-10.3) mg/dL Iron (50-170) UG/DL % Saturation (12.00-45.00) NT-Pro-B Natriuret Pep (0-125) pg/mL Cholesterol (0.00-200.00) mg/dL HDL Cholesterol (40.00-60.00) mg/dL Folate 37.50 H (4.40-31.00) ng/mL Procalcitonin (0.02-0.50) ng/mL 04/27/24 04/27/24 04/27/24 Range/Units 05:19 05:19 07:50 RBC 3.18 L (4.10-5.20) X 10*6/uL Hgb 9.7 L (12.0-15.0) g/dL Hct 31.8 L (37.2-46.3) % MCV 100.0 H (80.0-97.0) FL MCHC 30.5 L (32.0-37.0) g/dL RDW 15.4 H (11.5-14.5) % Plt Count 111 L (140-440) X 10*3/uL Lymphocytes # 0.50 L (0.90-5.00) X 10*3/uL Eosinophils # 0.01 L (0.04-0.35) X 10*3/uL Sodium 134 L (135-145) mmol/L Est GFR (CKD-EPI) 40 L (>=60) Glucose 122 H (70-110) mg/dL POC Glucose (mg/dL) 140 H (70-110) mg/dL Calcium 8.0 L (8.7-10.3) mg/dL Iron (50-170) UG/DL % Saturation (12.00-45.00) NT-Pro-B Natriuret Pep (0-125) pg/mL Cholesterol (0.00-200.00) mg/dL HDL Cholesterol (40.00-60.00) mg/dL Folate (4.40-31.00) ng/mL Procalcitonin (0.02-0.50) ng/mL 04/27/24 04/27/24 Range/Units 10:14 12:12 RBC (4.10-5.20) X 10*6/uL Hgb (12.0-15.0) g/dL Hct (37.2-46.3) % MCV (80.0-97.0) FL MCHC (32.0-37.0) g/dL RDW (11.5-14.5) % Plt Count (140-440) X 10*3/uL Lymphocytes # (0.90-5.00) X 10*3/uL Eosinophils # (0.04-0.35) X 10*3/uL Sodium (135-145) mmol/L Est GFR (CKD-EPI) (>=60) Glucose (70-110) mg/dL POC Glucose (mg/dL) 133 H 128 H (70-110) mg/dL Calcium (8.7-10.3) mg/dL Iron (50-170) UG/DL % Saturation (12.00-45.00) NT-Pro-B Natriuret Pep (0-125) pg/mL Cholesterol (0.00-200.00) mg/dL HDL Cholesterol (40.00-60.00) mg/dL Folate (4.40-31.00) ng/mL Procalcitonin (0.02-0.50) ng/mL Microbiology - Last 24 Hours (Table) 04/26/24 05:29 Urine Culture - Preliminary Urine,Voided Gram Neg Bacilli Assessment and Plan Assessment: Recurrent fall at home over the last 1 to 2 weeks Acute urinary tract infection, symptomatic Acute cellulitis of the left lower extremity Sepsis with fever and leukocytosis A-fib with slow heart rate Severe pulmonary hypertension Patient also complaining from left upper extremity weakness, rule out TIA. Currently no weakness on examination CHF, chronic Obesity with BMI 45.2 Iron deficiency anemia Forgetfulness, possible dementia. Also patient has guardian Hard of hearing Plan: normal saline at 75 mL/h discontinued Check chest x-ray in the morning Continue with ceftriaxone 2 g daily and follow-up culture results Follow-up urine culture. Consult infectious disease team Consult cardiology team given her recurrent falls and bradycardia in view of her A-fib. Patient was started on Xarelto Patient may benefit from surgery team evaluation for her anemia especially started on Xarelto now Neurology input is appreciated Follow-up creatinine and labs. Also monitor vitals Verify home medication Resume home medication once verified Further recommendation based on the clinical course GI prophylaxis: Pepcid DVT prophylaxis PT/OT Prognosis is definitely guarded
[2024-04-27] MEDS: Acetaminophen-Codeine 300-30mg TAB PO PRN (12:47)
[2024-04-27] MEDS: PANTOPRAZOLE 40 MG TABLET PO SCH (17:44)
[2024-04-27 17:46] LABS: Glucose,Whole Blood 159 mg/dL (70-110)
[2024-04-27 20:09] LABS: Glucose,Whole Blood 161 mg/dL (70-110)
[2024-04-27] MEDS: traZODone HCL 50 MG TAB PO SCH (20:19)
--- NOTE | 2024-04-27 22:13 | P.CONS ---
History of Present Illness - Reason for Consult Consult date: 04/27/24 Sepsis Requesting physician: Dheeraj Huang - Chief Complaint Fall x 1 day - History of Present Illness This is a telehealth visit Patient is a 74-year-old female with a past medical history significant for diabetes mellitus pavement heart failure atrial fibrillation anxiety depression patient has been brought to the hospital after apparently patient did have a fall while attempting to falling backwards and hitting it on the toilet patient denies any loss of consciousness patient has been brought to the hospital for further evaluation on presentation to the hospital she did have low-grade fever of 100.1 F patient did have mild tachycardia at times, patient has not been hypotensive he did have vital of 11.4 with a left shift creatinine has been normal liver enzymes normal did have positive UA influenza RSV COVID testing has been negative patient did have a chest x-ray that has been reported cardiomegaly without acute pulmonary infiltrate patient did have elevated procalcitonin patient has been treated with ceftriaxone infectious disease was consulted today concerning for sepsis patient denies having any headache or URI symptoms no chest pain no shortness of breath occasional cough no abdominal pain did have urinary symptoms of burning but no hematuria Review of Systems Positive point and negatives has been mentioned in the HPI, complete review of systems was performed and all other systems are negative Past Medical History Past Medical History: Atrial Fibrillation, Heart Failure, COPD, Diabetes Mellitus, GI Bleed, Hearing Disorder / Deafness, Memory Impairment, Osteoar thritis (OA), Renal Disease, Respiratory Disorder, Sleep Apnea/CPAP/BIPAP, Thyroid Disorder, Vascular Disorder Additional Past Medical History / Comment(s): c pap machine at home History of Any Multi-Drug Resistant Organisms: None Reported Past Surgical History: Appendectomy, Heart Catheterization With Stent, Hysterectomy, Orthopedic Surgery Additional Past Surgical History / Comment(s): carpal tunnel, watchman device february 2024 Past Anesthesia/Blood Transfusion Reactions: No Reported Reaction Date of Last Stent Placement:: unk Past Psychological History: Anxiety, Depression Smoking Status: Never smoker Past Alcohol Use History: None Reported Past Drug Use History: None Reported - Past Family History Father History Unknown: Yes Additional Family Medical History / Comment(s): Mother Family Medical History: Dementia Additional Family Medical History / Comment(s): alzheimers, blind, Medications and Allergies Home Medications Medication Instructions Recorded Confirmed Type Acetaminophen-Codeine 300-30mg 1 tab PO BID 11/23/24 11/23/24 History [Tylenol w/codeine #3] Albuterol Nebulized [Ventolin 2.5 mg INHALATION Q6H 04/26/24 04/26/24 History Nebulized] Amiodarone [Cordarone] 200 mg PO DAILY 04/26/24 04/26/24 History Ascorbic Acid [Vitamin C] 500 mg PO DAILY 04/26/24 04/26/24 History Aspirin EC [Ecotrin Low Dose] 81 mg PO DAILY 04/26/24 04/26/24 History Bumetanide [Bumex] 1 mg PO DAILY 04/26/24 04/26/24 History Clopidogrel [Plavix] 75 mg PO DAILY 04/26/24 04/26/24 History DULoxetine HCL [Cymbalta] 30 mg PO DAILY 04/26/24 04/26/24 History Divalproex [Depakote] 250 mg PO BID 04/26/24 04/26/24 History Docusate [Colace] 100 mg PO BID PRN 04/26/24 04/26/24 History Empagliflozin [Jardiance] 10 mg PO DAILY 04/26/24 04/26/24 History Ergocalciferol [Vitamin D2 (1250 1,250 mcg PO ALONSO 04/26/24 04/26/24 History Mcg = 41940 Iu)] Ferrous Sulfate [Feosol] 325 mg PO DAILY 04/26/24 04/26/24 History Folic Acid 1 mg PO DAILY 04/26/24 04/26/24 History Levothyroxine Sodium [Synthroid] 25 mcg PO DAILY 04/26/24 04/26/24 History Metoprolol Succinate (ER) [Toprol 50 mg PO DAILY 04/26/24 04/26/24 History Xl] Multivit-Min/Iron/Folic/Lutein 1 tab PO DAILY 04/26/24 04/26/24 History [Centrum Silver Women Tablet] [place]-3/Dha/Epa/Fish Oil [[place]-3 1 cap PO DAILY 04/26/24 04/26/24 History Fish Oil 1,000 mg Sfgl] Pantoprazole [Protonix] 40 mg PO AC-BID 04/26/24 04/26/24 History Rosuvastatin Calcium [Crestor] 5 mg PO DAILY 04/26/24 04/26/24 History allopurinoL [Zyloprim] 300 mg PO DAILY 04/26/24 04/26/24 History traZODone HCL [Desyrel] 50 mg PO HS 04/26/24 04/26/24 History Allergies Allergy/AdvReac Type Severity Reaction Status Date / Time No Known Allergies Allergy Verified 04/26/24 12:55 Physical Exam Vitals: Vital Signs Temp Pulse Pulse Resp BP BP Pulse Ox 04/27/24 12:41 98.3 F 100 17 115/67 94 L 04/27/24 11:20 105 H 04/27/24 11:08 108 H 04/27/24 08:00 99.7 F H 68 19 154/71 96 04/27/24 07:50 97 04/27/24 01:32 99.7 F H 80 18 124/59 91 L 04/26/24 19:47 100.0 F H 67 20 138/64 94 L 04/26/24 15:12 99.2 F 78 19 137/75 96 04/26/24 14:01 99.0 F 71 20 126/94 96 04/26/24 13:13 71 16 103/69 95 Intake and Output 04/26/24 04/27/24 04/27/24 22:59 06:59 14:59 Intake Total 640 825 240 Output Total 400 500 Balance 240 325 240 Intake: Intake, IV Titration 825 Amount Sodium Chloride 0.9% 1, 825 000 ml @ 75 mls/hr IV . [id number] [facility] Rx#:[id number] Oral 640 240 Output: Urine 400 500 Other: Voiding Method External Catheter External Catheter # Voids 1 Elderly female lying in the bed in no distress No tachypnea or accessory muscle respiration use Unlabored breathing Patient is awake alert mood and affect is normal Results CBC & Chem 7: 04/27/24 05:19 04/27/24 05:19 Labs: Abnormal Lab Results - Last 24 Hours (Table) 04/26/24 04/26/24 04/26/24 Range/Units 03:36 09:24 09:24 RBC (4.10-5.20) X 10*6/uL Hgb (12.0-15.0) g/dL Hct (37.2-46.3) % MCV (80.0-97.0) FL MCHC (32.0-37.0) g/dL RDW (11.5-14.5) % Plt Count (140-440) X 10*3/uL Lymphocytes # (0.90-5.00) X 10*3/uL Eosinophils # (0.04-0.35) X 10*3/uL Sodium (135-145) mmol/L Est GFR (CKD-EPI) (>=60) Glucose (70-110) mg/dL POC Glucose (mg/dL) (70-110) mg/dL Calcium (8.7-10.3) mg/dL Iron 11 L (50-170) UG/DL % Saturation 3.20 L (12.00-45.00) NT-Pro-B Natriuret Pep 26873 H (0-125) pg/mL Cholesterol 221.00 H (0.00-200.00) mg/dL HDL Cholesterol 87.40 H (40.00-60.00) mg/dL Folate (4.40-31.00) ng/mL Procalcitonin 2.57 H (0.02-0.50) ng/mL 04/26/24 04/26/24 04/26/24 Range/Units 09:24 17:20 20:21 RBC (4.10-5.20) X 10*6/uL Hgb (12.0-15.0) g/dL Hct (37.2-46.3) % MCV (80.0-97.0) FL MCHC (32.0-37.0) g/dL RDW (11.5-14.5) % Plt Count (140-440) X 10*3/uL Lymphocytes # (0.90-5.00) X 10*3/uL Eosinophils # (0.04-0.35) X 10*3/uL Sodium (135-145) mmol/L Est GFR (CKD-EPI) (>=60) Glucose (70-110) mg/dL POC Glucose (mg/dL) 146 H 138 H (70-110) mg/dL Calcium (8.7-10.3) mg/dL Iron (50-170) UG/DL % Saturation (12.00-45.00) NT-Pro-B Natriuret Pep (0-125) pg/mL Cholesterol (0.00-200.00) mg/dL HDL Cholesterol (40.00-60.00) mg/dL Folate 37.50 H (4.40-31.00) ng/mL Procalcitonin (0.02-0.50) ng/mL 04/27/24 04/27/24 04/27/24 Range/Units 05:19 05:19 07:50 RBC 3.18 L (4.10-5.20) X 10*6/uL Hgb 9.7 L (12.0-15.0) g/dL Hct 31.8 L (37.2-46.3) % MCV 100.0 H (80.0-97.0) FL MCHC 30.5 L (32.0-37.0) g/dL RDW 15.4 H (11.5-14.5) % Plt Count 111 L (140-440) X 10*3/uL Lymphocytes # 0.50 L (0.90-5.00) X 10*3/uL Eosinophils # 0.01 L (0.04-0.35) X 10*3/uL Sodium 134 L (135-145) mmol/L Est GFR (CKD-EPI) 40 L (>=60) Glucose 122 H (70-110) mg/dL POC Glucose (mg/dL) 140 H (70-110) mg/dL Calcium 8.0 L (8.7-10.3) mg/dL Iron (50-170) UG/DL % Saturation (12.00-45.00) NT-Pro-B Natriuret Pep (0-125) pg/mL Cholesterol (0.00-200.00) mg/dL HDL Cholesterol (40.00-60.00) mg/dL Folate (4.40-31.00) ng/mL Procalcitonin (0.02-0.50) ng/mL 04/27/24 04/27/24 Range/Units 10:14 12:12 RBC (4.10-5.20) X 10*6/uL Hgb (12.0-15.0) g/dL Hct (37.2-46.3) % MCV (80.0-97.0) FL MCHC (32.0-37.0) g/dL RDW (11.5-14.5) % Plt Count (140-440) X 10*3/uL Lymphocytes # (0.90-5.00) X 10*3/uL Eosinophils # (0.04-0.35) X 10*3/uL Sodium (135-145) mmol/L Est GFR (CKD-EPI) (>=60) Glucose (70-110) mg/dL POC Glucose (mg/dL) 133 H 128 H (70-110) mg/dL Calcium (8.7-10.3) mg/dL Iron (50-170) UG/DL % Saturation (12.00-45.00) NT-Pro-B Natriuret Pep (0-125) pg/mL Cholesterol (0.00-200.00) mg/dL HDL Cholesterol (40.00-60.00) mg/dL Folate (4.40-31.00) ng/mL Procalcitonin (0.02-0.50) ng/mL Microbiology - Last 24 Hours (Table) 04/26/24 05:29 Urine Culture - Preliminary Urine,Voided Gram Neg Bacilli Assessment and Plan (1) Sepsis Current Visit: Yes Status: Acute Code(s): A41.9 - SEPSIS, UNSPECIFIED ORGANISM SNOMED Code(s): 94037596 (2) UTI (urinary tract infection) Current Visit: Yes Status: Acute Code(s): N39.0 - URINARY TRACT INFECTION, SITE NOT SPECIFIED SNOMED Code(s): 80426841 Plan: 1patient presented to hospital with sepsis in this patient who did have fever tachycardia elevated white count meeting criteria for SIRS source is likely UTI did have a positive UA currently growing gram-negative likely enteric gram- negative pathogen. 2Rocephin 2 g daily while waiting for the culture to finalize. We will follow on clinical condition and cultures to further adjust medication if needed Thank you for this consultation we will follow the patient along with you Dictation was produced using [email or web address] dictation software. please excuse any grammatical, word or spelling errors. Time with Patient: Greater than 30
[2024-04-28 07:42] LABS: Glucose,Whole Blood 140 mg/dL (70-110)
--- NOTE | 2024-04-28 08:19 | XR ---
EXAMINATION TYPE: XR chest 1V DATE OF EXAM: 04/28/2024 COMPARISON: 04/26/2024 HISTORY: 74 year-old female shortness of breath on BiPAP TECHNIQUE: Single frontal view of the chest is obtained. FINDINGS: Heart mildly enlarged. Mild interstitial density is similar. No progressive consolidation or pleural effusion. IMPRESSION: Similar mild cardiomegaly and mild interstitial density. Correlate to exclude mild pulmo nary vascular congestion. [facility], , 04/28/2024 8:16 AM
[2024-04-28] MEDS: DAPAGLIFLOZIN PROPANEDIOL 5 MG TABLET PO SCH (08:40)
[2024-04-28] MEDS: METOPROLOL TARTRATE 25 MG TAB PO SCH (08:40)
[2024-04-28] MEDS: allopurinoL 300 MG TAB PO SCH (08:40)
[2024-04-28] MEDS: DULoxetine HCL 30 MG CAPSULE.DR PO SCH (08:40)
[2024-04-28] MEDS: FERROUS SULFATE 325 MG TAB PO SCH (08:40)
[2024-04-28] MEDS: FOLIC ACID 1 MG TAB PO SCH (08:40)
[2024-04-28 09:04] LABS: Basophils # (A) 0.01 X 10*3/uL (0.00-0.10); Basophils % (A) 0.1 %; Eosinophils # (A) 0.05 X 10*3/uL (0.04-0.35); Eosinophils % (A) 0.7 %; HCT 34.6 % (37.2-46.3); HGB 10.6 g/dL (12.0-15.0); Lymphocytes # (A) 0.73 X 10*3/uL (0.90-5.00); Lymphocytes % (A) 10.8 %; MCHC 30.6 g/dL (32.0-37.0); MCV 101.2 FL (80.0-97.0); Mean Platelet Volume 10.3 FL (9.5-12.2); Monocytes # (A) 1.07 X 10*3/uL (0.20-1.00); Monocytes % (A) 15.9 %; NRBC Per 100 WBC 0 X 10*3/uL (0.00-0.01); Neutrophils # (A) 4.85 X 10*3/uL (1.80-7.70); Neutrophils % (A) 71.9 %; Platelet Count 111 X 10*3/uL (140-440); RBC 3.42 X 10*6/uL (4.10-5.20); WBC 6.75 X 10*3/uL (4.50-10.00)
[2024-04-28 09:23] LABS: BUN/Creat Ratio 16.92 Ratio (12.00-20.00); Calcium 8.2 mg/dL (8.7-10.3); Carbon Dioxide 26.6 mmol/L (21.6-31.8); Chloride 100 mmol/L (96-109); Glucose 120 mg/dL (70-110); Potassium 4.3 mmol/L (3.5-5.5); Sodium 136 mmol/L (135-145)
--- NOTE | 2024-04-28 09:32 | P.PN ---
Subjective Progress Note Date: 04/28/24 HISTORY OF PRESENTING ILLNESS Patient is a poor historian. Very drowsy. Not able to provide good history No significant medical records documented in [facility] system at this time. History is mostly obtained from the medical charts. Presented to the hospital because of recurrent fall. She was in the bathroom slipped and hit her head. She is also been complaining of urinary discomfort. She is having low-grade fever on admission, hemoglobin 10.7, Progress note April 27 No evidence of atrial fibrillation last 24 hours of telemetry monitoring. Echo showed signs of severe pulmonary hypertension. Addendum:Was called notified at 10:30 AM that patient went into atrial fibrillation. I reviewed the telemetry and it does appear that patient went into atrial fibrillation with a heart rate in 130s to 140s. I will start patient on Xarelto 15 mg daily. Low-dose because of low GFR I will start her on metoprolol tartrate 25 mg twice daily. Uptitrate as blood pressure and heart rate tolerates. Avoid using high doses of negative inotropes in setting of severe pulmonary hypertension. 04/28/24 Patient seen and examined. She continues to have lower extremity edema. She remains in atrial fibrillation, paroxysmal, heart rate [id number]. Blood pressure 120/72, pulse ox 96% on 2 L nasal cannula. Repeat blood work reveals hemoglobin 10.6, creatinine 1.3 and BUN 22. PHYSICAL EXAMINATION Head: Normocephalic. Eyes: Sclerae nonicteric. Neck: Brisk carotid upstroke, no jugular venous distention. Lungs: Poor inspiratory effort, diminished breath sounds due to that. Mild crackles. Heart: Regular rate and rhythm, S1-S2, mild systolic murmur audible Abdomen: Soft nontender, positive bowel sounds. Extremities: 1+ pitting edema Neuro: Drowsy but arousable,. Detailed neuro exam was not performed. ASSESSMENT Severe pulmonary hypertension with RV pressure and volume overload. Right-sided heart failure with chronic lower extremity swelling Recurrent falls at home Delirium Metabolic encephalopathy UTI Cellulitis left lower extremity Sepsis Frequent PVCs Paroxysmal atrial fibrillation SHELLY on CKD. Creatinine 1.9 on admission. Cardiac testing Echo showed LVEF 55%, severe R we will dilatation with signs of RV pressure and volume overload with severe pulmonary hypertension. PLAN Obtain EKG Increase frequency of metoprolol 25 mg to 3 times daily Continue Xarelto at lower dose due to low GFR Continue patient on Farxiga Maintain telemetry Agree with neurology consult. Consider nephrology consult. Nurse practitioner note has been reviewed, I agree with documented findings and plan of care. Patient was seen and examined. Objective - Vital Signs Vital signs: Vital Signs Temp 98.6 F 04/28/24 07:40 Pulse 110 H 04/28/24 08:08 Resp 18 04/28/24 07:40 BP 120/72 04/28/24 07:40 Pulse Ox 96 04/28/24 08:02 FiO2 Intake & Output 04/27/24 04/28/24 04/28/24 18:59 06:59 18:59 Intake Total 1800 Output Total 1000 1600 Balance 800 -1600 Intake: Oral 1800 Output: Urine 1000 1600 Other: Voiding Method External Catheter External Catheter # Voids 2 - Labs CBC & Chem 7: 04/28/24 04:08 04/28/24 04:08 Labs: Abnormal Lab Results - Last 24 Hours (Table) 04/27/24 04/27/24 04/27/24 Range/Units 05:19 05:19 10:14 RBC 3.18 L (4.10-5.20) X 10*6/uL Hgb 9.7 L (12.0-15.0) g/dL Hct 31.8 L (37.2-46.3) % MCV 100.0 H (80.0-97.0) FL MCHC 30.5 L (32.0-37.0) g/dL RDW 15.4 H (11.5-14.5) % Plt Count 111 L (140-440) X 10*3/uL Lymphocytes # 0.50 L (0.90-5.00) X 10*3/uL Eosinophils # 0.01 L (0.04-0.35) X 10*3/uL Sodium 134 L (135-145) mmol/L Est GFR (CKD-EPI) 40 L (>=60) Glucose 122 H (70-110) mg/dL POC Glucose (mg/dL) 133 H (70-110) mg/dL Calcium 8.0 L (8.7-10.3) mg/dL 04/27/24 04/27/24 04/27/24 Range/Units 12:12 17:33 20:07 RBC (4.10-5.20) X 10*6/uL Hgb (12.0-15.0) g/dL Hct (37.2-46.3) % MCV (80.0-97.0) FL MCHC (32.0-37.0) g/dL RDW (11.5-14.5) % Plt Count (140-440) X 10*3/uL Lymphocytes # (0.90-5.00) X 10*3/uL Eosinophils # (0.04-0.35) X 10*3/uL Sodium (135-145) mmol/L Est GFR (CKD-EPI) (>=60) Glucose (70-110) mg/dL POC Glucose (mg/dL) 128 H 159 H 161 H (70-110) mg/dL Calcium (8.7-10.3) mg/dL 04/28/24 Range/Units 07:41 RBC (4.10-5.20) X 10*6/uL Hgb (12.0-15.0) g/dL Hct (37.2-46.3) % MCV (80.0-97.0) FL MCHC (32.0-37.0) g/dL RDW (11.5-14.5) % Plt Count (140-440) X 10*3/uL Lymphocytes # (0.90-5.00) X 10*3/uL Eosinophils # (0.04-0.35) X 10*3/uL Sodium (135-145) mmol/L Est GFR (CKD-EPI) (>=60) Glucose (70-110) mg/dL POC Glucose (mg/dL) 140 H (70-110) mg/dL Calcium (8.7-10.3) mg/dL Microbiology - Last 24 Hours (Table) 04/26/24 09:24 Blood Culture - Preliminary Blood 04/26/24 05:29 Urine Culture - Preliminary Urine,Voided Gram Neg Bacilli
--- NOTE | 2024-04-28 12:06 | P.GSCN ---
History of Present Illness Consult date: 04/28/24 History of present illness: CHIEF COMPLAINT: Fall Reason for consult anemia HISTORY OF PRESENT ILLNESS: This is a 74-year-old female who was brought into the ER after a fall. Patient lost her balance in the bathroom and hit her head on the toilet. Patient being treated for UTI. Patient also in atrial fibrillation does have a Watchman procedure. Cardiology does have patient on Xarelto. Surgical service has been consulted in regards to anemia. Patient denies any abdominal pain. Denies any nausea or vomiting. Denies any blood in his her stools or black stools. She reports her last colonoscopy was several years ago. She does not believe she is ever had an EGD. PAST MEDICAL HISTORY: COPD, diabetes mellitus, A-fib, CHF PAST SURGICAL HISTORY: Watchman procedure MEDICATIONS: See below ALLERGIES: See below SOCIAL HISTORY: No illicit drug use. REVIEW OF SYSTEMS: CONSTITUTIONAL: Denies fever or chills. HEENT: Denies blurred vision, vision changes, or eye pain. Denies hemoptysis CARDIOVASCULAR: Denies chest pain or pressure. RESPIRATORY: No shortness of breath. GASTROINTESTINAL: See HPI for pertinent findings HEMATOLOGIC: Denies bleeding disorders. GENITOURINARY: Denies any blood in urine or increased urinary frequency. SKIN: Denies pruitis. Denies rash. PHYSICAL EXAM: VITAL SIGNS: Reviewed GENERAL: Well-developed in no acute distress. HEENT: No sclera icterus. Extraocular movements grossly intact. Moist buccal mucosa. Head is atraumatic, normocephalic. No nasal drainage. ABDOMEN: Soft. Nondistended. Nontender NEUROLOGIC: Alert and oriented. Cranial nerves II through XII grossly intact. LABORATORY DATA: WBC 6.75 Hgb on admission 10.7 down to 9.7 and today 10.6. Platelets 111 Hgb on 03/04/2024 was 11.5 MCV 101.2 Iron low at 11 B12 B12 576 Sodium 136 potassium is 4.3 creatinine 1.3 IMAGING: CT scan head and cervical spine no acute fracture or dislocation of the C-spine. No acute intracranial hemorrhage. Echo EF 40%. Moderate to severe tricuspid regurg. Severe pulmonary hypertension. Mild mitral regurg ASSESSMENT: 1. Anemia, with no active bleeding 2. Iron deficiency anemia PLAN: -Continue to monitor hemoglobin -Continue to monitor for any signs or symptoms of bleeding -Hemoglobin has gone up with no evidence of active bleeding. Okay to continue blood thinner at this point -Agree with iron supplement -Further recommendations forthcoming per surgeon Physician Thrill Performer note has been reviewed by physician. Signing provider agrees with the documented findings, assessment, and plan of care. I have personally seen and examined the patient, reviewed the COPRA SAMPLER /PAs history, exam and MDM and agree with the assessment and plan as written. Based on total visit time, I have performed more than 50% of the visit. As above: Patient with anemia hemoglobin 9.7 but came out to 10.6 without transf usion. Denies rectal bleeding or melena. Patient believes she was hospitalized at [facility] earlier this year with similar issues. She thinks she may have had endoscopies at the time. She states Dr. Whitfield would know this. She is not interested in any endoscopic intervention currently. She is currently no code. She remains on anticoagulation. Stool for occult blood was ordered but not obtained yet. No immediate plans for endoscopy. Will try to obtain records from [facility]. Past Medical History Past Medical History: Atrial Fibrillation, Heart Failure, COPD, Diabetes Mellitus, GI Bleed, Hearing Disorder / Deafness, Memory Impairment, Osteoarthritis (OA), Renal Disease, Respiratory Disorder, Sleep Apnea/CPAP/BIPA P, Thyroid Disorder, Vascular Disorder Additional Past Medical History / Comment(s): c pap machine at home History of Any Multi-Drug Resistant Organisms: None Reported Past Surgical History: Appendectomy, Heart Catheterization With Stent, Hysterectomy, Orthopedic Surgery Additional Past Surgical History / Comment(s): carpal tunnel, watchman device february 2024 Past Anesthesia/Blood Transfusion Reactions: No Reported Reaction Date of Last Stent Placement:: unk Past Psychological History: Anxiety, Depression Smoking Status: Never smoker Past Alcohol Use History: None Reported Past Drug Use History: None Reported - Past Family History Father History Unknown: Yes Additional Family Medical History / Comment(s): Mother Family Medical History: Dementia Additional Family Medical History / Comment(s): alzheimers, blind, Medications and Allergies Home Medications Medication Instructions Recorded Confirmed Type Acetaminophen-Codeine 300-30mg 1 tab PO BID 04/26/24 04/26/24 History [Tylenol w/codeine #3] Albuterol Nebulized [Ventolin 2.5 mg INHALATION Q6H 04/26/24 04/26/24 History Nebulized] Amiodarone [Cordarone] 200 mg PO DAILY 04/26/24 04/26/24 History Ascorbic Acid [Vitamin C] 500 mg PO DAILY 04/26/24 04/26/24 History Aspirin EC [Ecotrin Low Dose] 81 mg PO DAILY 04/26/24 04/26/24 History Bumetanide [Bumex] 1 mg PO DAILY 04/26/24 04/26/24 History Clopidogrel [Plavix] 75 mg PO DAILY 04/26/24 04/26/24 History DULoxetine HCL [Cymbalta] 30 mg PO DAILY 04/26/24 04/26/24 History Divalproex [Depakote] 250 mg PO BID 04/26/24 04/26/24 History Docusate [Colace] 100 mg PO BID PRN 04/26/24 04/26/24 History Empagliflozin [Jardiance] 10 mg PO DAILY 04/26/24 04/26/24 History Ergocalciferol [Vitamin D2 (1250 1,250 mcg PO ALONSO 04/26/24 04/26/24 History Mcg = 49027 Iu)] Ferrous Sulfate [Feosol] 325 mg PO DAILY 04/26/24 04/26/24 History Folic Acid 1 mg PO DAILY 04/26/24 04/26/24 History Levothyroxine Sodium [Synthroid] 25 mcg PO DAILY 04/26/24 04/26/24 History Metoprolol Succinate (ER) [Toprol 50 mg PO DAILY 04/26/24 04/26/24 History Xl] Multivit-Min/Iron/Folic/Lutein 1 tab PO DAILY 04/26/24 04/26/24 History [Centrum Silver Women Tablet] [place]-3/Dha/Epa/Fish Oil [[place]-3 1 cap PO DAILY 04/26/24 04/26/24 History Fish Oil 1,000 mg Sfgl] Pantoprazole [Protonix] 40 mg PO AC-BID 04/26/24 04/26/24 History Rosuvastatin Calcium [Crestor] 5 mg PO DAILY 04/26/24 04/26/24 History allopurinoL [Zyloprim] 300 mg PO DAILY 04/26/24 04/26/24 History traZODone HCL [Desyrel] 50 mg PO HS 04/26/24 04/26/24 History Allergies Allergy/AdvReac Type Severity Reaction Status Date / Time No Known Allergies Allergy Verified 04/26/24 12:55 Surgical - Exam Vital Signs Temp Pulse Resp BP Pulse Ox 100.1 F H 74 16 139/65 97 04/26/24 03:24 04/26/24 03:24 04/26/24 03:24 04/26/24 03:24 04/26/24 03:24 Results - Labs 04/28/24 04:08 04/28/24 04:08 Abnormal Lab Results - Last 24 Hours (Table) 04/27/24 04/27/24 04/27/24 Range/Units 12:12 17:33 20:07 RBC (4.10-5.20) X 10*6/uL Hgb (12.0-15.0) g/dL Hct (37.2-46.3) % MCV (80.0-97.0) FL MCHC (32.0-37.0) g/dL RDW (11.5-14.5) % Plt Count (140-440) X 10*3/uL Lymphocytes # (0.90-5.00) X 10*3/uL Monocytes # (0.20-1.00) X 10*3/uL Est GFR (CKD-EPI) (>=60) Glucose (70-110) mg/dL POC Glucose (mg/dL) 128 H 159 H 161 H (70-110) mg/dL Calcium (8.7-10.3) mg/dL 04/28/24 04/28/24 04/28/24 Range/Units 04:08 04:08 07:41 RBC 3.42 L (4.10-5.20) X 10*6/uL Hgb 10.6 L (12.0-15.0) g/dL Hct 34.6 L (37.2-46.3) % MCV 101.2 H (80.0-97.0) FL MCHC 30.6 L (32.0-37.0) g/dL RDW 15.0 H (11.5-14.5) % Plt Count 111 L (140-440) X 10*3/uL Lymphocytes # 0.73 L (0.90-5.00) X 10*3/uL Monocytes # 1.07 H (0.20-1.00) X 10*3/uL Est GFR (CKD-EPI) 44 L (>=60) Glucose 120 H (70-110) mg/dL POC Glucose (mg/dL) 140 H (70-110) mg/dL Calcium 8.2 L (8.7-10.3) mg/dL Microbiology - Last 24 Hours (Table) 04/26/24 09:24 Blood Culture - Preliminary Blood 04/26/24 05:29 Urine Culture - Preliminary Urine,Voided Gram Neg Bacilli Diabetes panel 04/28/24 Range/Units 04:08 Sodium 136 (135-145) mmol/L Potassium 4.3 (3.5-5.5) mmol/L Chloride 100 (96-109) mmol/L Carbon Dioxide 26.6 (21.6-31.8) mmol/L BUN 22.0 (9.0-27.0) mg/dL Creatinine 1.3 (0.6-1.5) mg/dL Glucose 120 H (70-110) mg/dL Calcium 8.2 L (8.7-10.3) mg/dL Calcium panel 04/28/24 Range/Units 04:08 Calcium 8.2 L (8.7-10.3) mg/dL Pituitary panel 04/28/24 Range/Units 04:08 Sodium 136 (135-145) mmol/L Potassium 4.3 (3.5-5.5) mmol/L Chloride 100 (96-109) mmol/L Carbon Dioxide 26.6 (21.6-31.8) mmol/L BUN 22.0 (9.0-27.0) mg/dL Creatinine 1.3 (0.6-1.5) mg/dL Glucose 120 H (70-110) mg/dL Calcium 8.2 L (8.7-10.3) mg/dL Adrenal panel 04/28/24 Range/Units 04:08 Sodium 136 (135-145) mmol/L Potassium 4.3 (3.5-5.5) mmol/L Chloride 100 (96-109) mmol/L Carbon Dioxide 26.6 (21.6-31.8) mmol/L BUN 22.0 (9.0-27.0) mg/dL Creatinine 1.3 (0.6-1.5) mg/dL Glucose 120 H (70-110) mg/dL Calcium 8.2 L (8.7-10.3) mg/dL
[2024-04-28 12:18] LABS: Glucose,Whole Blood 148 mg/dL (70-110)
--- NOTE | 2024-04-28 12:48 | P.PN ---
Subjective Progress Note Date: 04/28/24 Principal diagnosis: Fall with UTI Ms. Farmer is a 74-year-old female with history of coronary artery disease, deafness, poor memory, osteomyelitis, chronic renal insufficiency, atrial fibrillation, CHF, COPD, diabetes mellitus, LUCIANO for which she is on CPAP and thyroid disorder who was admitted to [facility] on April 26 status post fall in her restroom. She had been complaining of dysuria for the past couple of days as well as shortness of breath and was noted to have 92 white blood cells in her urine. She is currently off of antibiotics. She is pending an MRI of the brain as well as cervical spine for consideration of abnormalities there but a CT of the head on the the did not reveal any evidence of fracture or intracerebral hemorrhage. This morning she feels well save for some mild dizziness.. Exam: Patient is alert and oriented to person and place as well as month. Her cranial nerves appear intact. She has roughly 5/5 strength in her upper extremities; lower extremities are approximately 3/5, which she states is chronic. Sensory examinations intact, coordination examination feels no absent dysmetria on [id number]. Reflex emanation reveals 1+ and symmetric reflexes. Plan: 1. The patient is pending an MRI of the brain as well as cervical spine which will be reviewed by the neurology team. 2. The patient does not appear to be acutely confused at this time nor do I believe she has had a seizure 3. Neurology will continue to follow the patient on an intermittent basis but report on her MRI when this is complete. Objective - Vital Signs Vital signs: Vital Signs Temp 98.2 F 04/28/24 12:16 Pulse 105 H 04/28/24 12:16 Resp 20 04/28/24 12:16 BP 129/78 04/28/24 12:16 Pulse Ox 94 L 04/28/24 12:16 FiO2 Intake & Output 04/27/24 04/28/24 04/28/24 18:59 06:59 18:59 Intake Total 1800 Output Total 1000 1600 Balance 800 -1600 Intake: Oral 1800 Output: Urine 1000 1600 Other: Voiding Method External Catheter External Catheter External Catheter # Voids 2 - Labs CBC & Chem 7: 04/28/24 04:08 04/28/24 04:08 Labs: Abnormal Lab Results - Last 24 Hours (Table) 04/27/24 04/27/24 04/28/24 Range/Units 17:33 20:07 04:08 RBC 3.42 L (4.10-5.20) X 10*6/uL Hgb 10.6 L (12.0-15.0) g/dL Hct 34.6 L (37.2-46.3) % MCV 101.2 H (80.0-97.0) FL MCHC 30.6 L (32.0-37.0) g/dL RDW 15.0 H (11.5-14.5) % Plt Count 111 L (140-440) X 10*3/uL Lymphocytes # 0.73 L (0.90-5.00) X 10*3/uL Monocytes # 1.07 H (0.20-1.00) X 10*3/uL Est GFR (CKD-EPI) (>=60) Glucose (70-110) mg/dL POC Glucose (mg/dL) 159 H 161 H (70-110) mg/dL Calcium (8.7-10.3) mg/dL 04/28/24 04/28/24 04/28/24 Range/Units 04:08 07:41 12:17 RBC (4.10-5.20) X 10*6/uL Hgb (12.0-15.0) g/dL Hct (37.2-46.3) % MCV (80.0-97.0) FL MCHC (32.0-37.0) g/dL RDW (11.5-14.5) % Plt Count (140-440) X 10*3/uL Lymphocytes # (0.90-5.00) X 10*3/uL Monocytes # (0.20-1.00) X 10*3/uL Est GFR (CKD-EPI) 44 L (>=60) Glucose 120 H (70-110) mg/dL POC Glucose (mg/dL) 140 H 148 H (70-110) mg/dL Calcium 8.2 L (8.7-10.3) mg/dL Microbiology - Last 24 Hours (Table) 04/26/24 05:29 Urine Culture - Final Urine,Voided Escherichia coli 04/26/24 09:24 Blood Culture - Preliminary Blood
[2024-04-28 16:55] LABS: Glucose,Whole Blood 187 mg/dL (70-110)
[2024-04-28] MEDS ORDERED: IPRATROPIUM-ALBUTEROL 3 ML NEB INHALATION PRN (19:28)
[2024-04-28 20:09] LABS: Glucose,Whole Blood 153 mg/dL (70-110)
--- NOTE | 2024-04-28 21:14 | P.PN ---
Subjective This is a pleasant 74 years old female with past medical history of multiple medical problems including A-fib. Patient somewhat is forgetful about her history and medication. States that her daughter is her guardian who take care of her medication. She knows she takes blood thinner but she is not sure for what reason or what it is. She presents because of recurrent fall. She states she fell in her bathroom, she slipped and hit her head. She went to urinate and she has been complaining from discomfort urination and dysuria. Also patient was feeling short of breath of 1 day duration, with dry cough but no chest pain. Of note patient also was in the emergency room for recurrent fall on 02/25 and 03/04 this month. On admission patient denies abdominal complaints. No headache or dizziness currently but she told me she feels her left upper extremity was weak. She states she uses oxygen at home. And complains from mild pain in her left leg She denies smoking alcohol or illicit drugs. On admission she had low-grade fever of 100.1. Also she has mild leukocytosis of 11.4, she has 1 blood test 1 year ago with WBC 13.2 Hemoglobin 10.7, platelet count 130 Creatinine 1.7, previously was 1.91 time on 03/04/[address] is negative for acute process Chest x-ray is showing cardiomegaly with no vascular congestion Liver enzymes are unremarkable, INR is 1.2. EKG showing A-fib with a heart rate of 38 Urine analysis suspicious for UTI, urine culture is pending Influenza A and type B, RSV, SARS (coronavirus) are undetected She received 1 dose of Rocephin in the emergency room 04/27 Patient still with malaise, she is complaining from headache 8/10 on the left side of the head No new weakness or numbness. She is complaining from weakness in the left upper extremity but states this is for a while without specification. Patient is with atrial fibrillation and she was not on anticoagulation, she was on aspirin and Plavix at home. Xarelto was started this morning after I could not to send the monitor and started by personal injury specialist Therefore we consulted neurology service who recommended MRI of the brain and cervical spine, we will follow-up the results. Currently on exam there is no weakness in the upper extremities but she has many risk factors, however patient already started on Xarelto Patient also with evidence of iron deficiency anemia. Will check occult blood in stool Echocardiogram showing cardiomyopathy with ejection fraction of 40% with severe right ventricular dilatation and moderate to severe tricuspid regurgitation and severe pulmonary hypertension at 64 mmHg Blood pressure is stable, she is mildly tachycardic She has low-grade fever Leukocytosis improved down to 6.8, hemoglobin 9.7 but also with evidence of hemodilution Platelet count 111. Creatinine improved 1.9 down to 1.4 We will hold fluids for now Bladder scan 167 mL Check chest x-ray in the morning Continue with ceftriaxone Also will consult general surgery and infectious disease Prognosis remains guarded 04/28 pt complains from headache today 02/11, she does not look in distress she is generally weakn mildly tachypneic leg cellulitis is better in the left leg mri of the brain is pending pt is placed on xarelto anyway for her a fib Objective - Vital Signs Vital signs: Vital Signs Temp 98.2 F 04/28/24 12:16 Pulse 105 H 04/28/24 12:16 Resp 20 04/28/24 12:16 BP 129/78 04/28/24 12:16 Pulse Ox 94 L 04/28/24 12:16 FiO2 Intake & Output 04/27/24 04/28/24 04/28/24 18:59 06:59 18:59 Intake Total 1800 Output Total 1000 1600 Balance 800 -1600 Intake: Oral 1800 Output: Urine 1000 1600 Other: Voiding Method External Catheter External Catheter External Catheter # Voids 2 - Exam --GENERAL: The patient is alert and oriented x2-3, not in any acute distress. Well developed, well nourished. Generally weak with malaise HEENT: Pupils are round and equally reacting to light. EOMI. No scleral icterus. No conjunctival pallor. Normocephalic, atraumatic. No pharyngeal erythema. No thyromegaly. CARDIOVASCULAR: S1 and S2 present. No murmurs, rubs, or gallops. PULMONARY: Chest is clear to auscultation, no wheezing , no crackles. ABDOMEN: Soft, nontender, nondistended, normoactive bowel sounds. No palpable organomegaly. MUSCULOSKELETAL: No joint swelling or deformity. -EXTREMITIES: No cyanosis, clubbing, or pedal edema. Left leg is more red and warm to the right side suspicious for cellulitis NEUROLOGICAL: Gross neurological examination did not reveal any focal deficits. SKIN: No rashes. no petechiae. - Labs CBC & Chem 7: 04/28/24 04:08 04/28/24 04:08 Labs: Abnormal Lab Results - Last 24 Hours (Table) 04/27/24 04/27/24 04/28/24 Range/Units 17:33 20:07 04:08 RBC 3.42 L (4.10-5.20) X 10*6/uL Hgb 10.6 L (12.0-15.0) g/dL Hct 34.6 L (37.2-46.3) % MCV 101.2 H (80.0-97.0) FL MCHC 30.6 L (32.0-37.0) g/dL RDW 15.0 H (11.5-14.5) % Plt Count 111 L (140-440) X 10*3/uL Lymphocytes # 0.73 L (0.90-5.00) X 10*3/uL Monocytes # 1.07 H (0.20-1.00) X 10*3/uL Est GFR (CKD-EPI) (>=60) Glucose (70-110) mg/dL POC Glucose (mg/dL) 159 H 161 H (70-110) mg/dL Calcium (8.7-10.3) mg/dL 04/28/24 04/28/24 04/28/24 Range/Units 04:08 07:41 12:17 RBC (4.10-5.20) X 10*6/uL Hgb (12.0-15.0) g/dL Hct (37.2-46.3) % MCV (80.0-97.0) FL MCHC (32.0-37.0) g/dL RDW (11.5-14.5) % Plt Count (140-440) X 10*3/uL Lymphocytes # (0.90-5.00) X 10*3/uL Monocytes # (0.20-1.00) X 10*3/uL Est GFR (CKD-EPI) 44 L (>=60) Glucose 120 H (70-110) mg/dL POC Glucose (mg/dL) 140 H 148 H (70-110) mg/dL Calcium 8.2 L (8.7-10.3) mg/dL Microbiology - Last 24 Hours (Table) 04/26/24 05:29 Urine Culture - Final Urine,Voided Escherichia coli 04/26/24 09:24 Blood Culture - Preliminary Blood Assessment and Plan Assessment: Recurrent fall at home over the last 1 to 2 weeks Acute urinary tract infection, symptomatic Acute cellulitis of the left lower extremity Sepsis with fever and leukocytosis A-fib with slow heart rate Severe pulmonary hypertension Patient also complaining from left upper extremity weakness, rule out TIA. Currently no weakness on examination CHF, chronic Obesity with BMI 45.2 Iron deficiency anemia Forgetfulness, possible dementia. Also patient has guardian Hard of hearing Plan: Check chest x-ray in the morning Continue with ceftriaxone 2 g daily and follow-up culture results Follow-up urine culture. Consult infectious disease team Consult cardiology team given her recurrent falls and bradycardia in view of her A-fib. Patient was started on Xarelto Patient may benefit from surgery team evaluation for her anemia especially started on Xarelto now, then recommend to continue monitoring with iron supplementation for now, no surgical intervention Neurology input is appreciated Follow-up creatinine and labs. Also monitor vitals Verify home medication Resume home medication once verified Further recommendation based on the clinical course GI prophylaxis: Pepcid DVT prophylaxis PT/OT Prognosis is definitely guarded
--- NOTE | 2024-04-28 21:32 | P.PN ---
Subjective Progress Note Date: 04/28/24 Principal diagnosis: Reason for follow-up is E. coli UTI Patient is a 74-year-old female with a past medical history significant for diabetes mellitus pavement heart failure atrial fibrillation anxiety depression patient has been brought to the hospital after apparently patient did have a fall, the patient did have low-grade fever elevated white count positive UA concerning for symptomatic urinary tract infection. On today's evaluation that is 04/28/2024, Patient is afebrile patient is currently on 2 L nasal cannula oxygen and denies having any shortness of breath, the patient denies any chest pain or cough, the patient denies any nausea vomiting did not have any abdominal pain and no diarrhea still complain of some posterior head pain. The patient white count is normalized to 6.75 creatinine is 1.3 urine grew E. coli sensitive pathogen Objective - Vital Signs Vital signs: Vital Signs Temp 98.6 F 04/28/24 07:40 Pulse 110 H 04/28/24 08:08 Resp 18 04/28/24 07:40 BP 120/72 04/28/24 07:40 Pulse Ox 96 04/28/24 08:02 FiO2 Intake & Output 04/27/24 04/28/24 04/28/24 18:59 06:59 18:59 Intake Total 1800 Output Total 1000 1600 Balance 800 -1600 Intake: Oral 1800 Output: Urine 1000 1600 Other: Voiding Method External Catheter External Catheter # Voids 2 - Exam GENERAL DESCRIPTION: An elderly female lying in bed in no distress RESPIRATORY SYSTEM: Unlabored breathing , decreased breath sounds at bases HEART: S1 S2 regular rate and rhythm , ABDOMEN: Soft , no tenderness EXTREMITIES: No edema feet - Labs CBC & Chem 7: 04/28/24 04:08 04/28/24 04:08 Labs: Abnormal Lab Results - Last 24 Hours (Table) 04/27/24 04/27/24 04/27/24 Range/Units 05:19 10:14 12:12 RBC (4.10-5.20) X 10*6/uL Hgb (12.0-15.0) g/dL Hct (37.2-46.3) % MCV (80.0-97.0) FL MCHC (32.0-37.0) g/dL RDW (11.5-14.5) % Plt Count (140-440) X 10*3/uL Lymphocytes # (0.90-5.00) X 10*3/uL Monocytes # (0.20-1.00) X 10*3/uL Sodium 134 L (135-145) mmol/L Est GFR (CKD-EPI) 40 L (>=60) Glucose 122 H (70-110) mg/dL POC Glucose (mg/dL) 133 H 128 H (70-110) mg/dL Calcium 8.0 L (8.7-10.3) mg/dL 04/27/24 04/27/24 04/28/24 Range/Units 17:33 20:07 04:08 RBC 3.42 L (4.10-5.20) X 10*6/uL Hgb 10.6 L (12.0-15.0) g/dL Hct 34.6 L (37.2-46.3) % MCV 101.2 H (80.0-97.0) FL MCHC 30.6 L (32.0-37.0) g/dL RDW 15.0 H (11.5-14.5) % Plt Count 111 L (140-440) X 10*3/uL Lymphocytes # 0.73 L (0.90-5.00) X 10*3/uL Monocytes # 1.07 H (0.20-1.00) X 10*3/uL Sodium (135-145) mmol/L Est GFR (CKD-EPI) (>=60) Glucose (70-110) mg/dL POC Glucose (mg/dL) 159 H 161 H (70-110) mg/dL Calcium (8.7-10.3) mg/dL 04/28/24 04/28/24 Range/Units 04:08 07:41 RBC (4.10-5.20) X 10*6/uL Hgb (12.0-15.0) g/dL Hct (37.2-46.3) % MCV (80.0-97.0) FL MCHC (32.0-37.0) g/dL RDW (11.5-14.5) % Plt Count (140-440) X 10*3/uL Lymphocytes # (0.90-5.00) X 10*3/uL Monocytes # (0.20-1.00) X 10*3/uL Sodium (135-145) mmol/L Est GFR (CKD-EPI) 44 L (>=60) Glucose 120 H (70-110) mg/dL POC Glucose (mg/dL) 140 H (70-110) mg/dL Calcium 8.2 L (8.7-10.3) mg/dL Microbiology - Last 24 Hours (Table) 04/26/24 09:24 Blood Culture - Preliminary Blood 04/26/24 05:29 Urine Culture - Preliminary Urine,Voided Gram Neg Bacilli Assessment and Plan (1) Sepsis Current Visit: Yes Status: Acute Code(s): A41.9 - SEPSIS, UNSPECIFIED ORGANISM SNOMED Code(s): 44635259 (2) UTI (urinary tract infection) Current Visit: Yes Status: Acute Code(s): N39.0 - URINARY TRACT INFECTION, SITE NOT SPECIFIED SNOMED Code(s): 75454076 Plan: 1patient presented to hospital with sepsis in this patient who did have fever tachycardia elevated white count meeting criteria for SIRS source is likely UTI did have a positive UA currently growing gram-negative likely enteric gram-negat sylvia pathogen. Patient urine has been finalized with E. coli that is a sensitive pathogen 2patient to continue with Rocephin while inpatient will transition over to oral antibiotic on discharge Dictation was produced using [email or web address] dictation software. please excuse any grammatical, word or spelling errors. Time with Patient: Less than 30
[2024-04-29 07:22] LABS: Glucose,Whole Blood 108 mg/dL (70-110)
[2024-04-29] MEDS: IPRATROPIUM-ALBUTEROL 3 ML NEB INHALATION SCH (08:12)
[2024-04-29] MEDS: METOPROLOL TARTRATE 50 MG TAB PO SCH (08:57)
--- NOTE | 2024-04-29 11:08 | P.PN ---
Subjective Progress Note Date: 04/29/24 HISTORY OF PRESENTING ILLNESS Patient is a poor historian. Very drowsy. Not able to provide good history No significant medical records documented in [facility] system at this time. History is mostly obtained from the medical charts. Presented to the hospital because of recurrent fall. She was in the bathroom slipped and hit her head. She is also been complaining of urinary discomfort. She is having low-grade fever on admission, hemoglobin 10.7, Progress note April 27 No evidence of atrial fibrillation last 24 hours of telemetry monitoring. Echo showed signs of severe pulmonary hypertension. Addendum:Was called notified at 10:30 AM that patient went into atrial fibrillation. I reviewed the telemetry and it does appear that patient went into atrial fibrillation with a heart rate in 130s to 140s. I will start patient on Xarelto 15 mg daily. Low-dose because of low GFR I will start her on metoprolol tartrate 25 mg twice daily. Uptitrate as blood pressure and heart rate tolerates. Avoid using high doses of negative inotropes in setting of severe pulmonary hypertension. 04/28/24 Patient seen and examined. She continues to have lower extremity edema. She remains in atrial fibrillation, paroxysmal, heart rate [id number]. Blood pressure 120/72, pulse ox 96% on 2 L nasal cannula. Repeat blood work reveals hemoglobin 10.6, creatinine 1.3 and BUN 22. 04/29/24 Patient is seen and examined. She is noted to be more confused today. She is followed by neurology scheduled for an MRI of the brain later this morning. Yesterday because of elevated heart rates, we increased the frequency of her metoprolol. Her heart rate is still running just over 100 and will make further adjustments today. Blood pressure 138/79, heart rate 109, pulse ox 95% on 2 L nasal cannula. No repeat blood work today. EKG obtained yesterday to document atrial fibrillation PHYSICAL EXAMINATION Head: Normocephalic. Eyes: Sclerae nonicteric. Neck: Brisk carotid upstroke, no jugular venous distention. Lungs: Poor inspiratory effort, diminished breath sounds due to that. Mild crackles. Heart: Regular rate and rhythm, S1-S2, mild systolic murmur audible Abdomen: Soft nontender, positive bowel sounds. Extremities: 1+ pitting edema Neuro: Patient confused. ASSESSMENT Severe pulmonary hypertension with RV pressure and volume overload. Right-sided heart failure with chronic lower extremity swelling Recurrent falls at home Delirium Metabolic encephalopathy UTI Cellulitis left lower extremity Sepsis Frequent PVCs Paroxysmal atrial fibrillation SHELLY on CKD. Creatinine 1.9 on admission. Cardiac testing Echo showed LVEF 55%, severe R we will dilatation with signs of RV pressure and volume overload with severe pulmonary hypertension. PLAN Increase metoprolol to 50 mg twice daily Continue Xarelto at lower dose due to low GFR Continue patient on Farxiga No further cardiac workup at this time. Cardiology will sign off this case and follow on an as-needed basis. Please reconsult for any new concerns. Patient may follow-up in the office in one to 2 weeks. Nurse practitioner note has been reviewed, I agree with documented findings and plan of care. Patient was seen and examined. Objective - Vital Signs Vital signs: Vital Signs Temp 98.5 F 04/29/24 07:21 Pulse 96 04/29/24 08:22 Resp 20 04/29/24 07:21 BP 138/79 04/29/24 07:21 Pulse Ox 95 04/29/24 08:12 FiO2 Intake & Output 04/28/24 04/29/24 04/29/24 18:59 06:59 18:59 Output Total 950 1525 Balance -950 -1525 Output: Urine 950 1525 Other: Voiding Method External Catheter External Catheter # Voids 1 - Labs CBC & Chem 7: 04/28/24 04:08 04/28/24 04:08 Labs: Abnormal Lab Results - Last 24 Hours (Table) 04/28/24 04/28/24 04/28/24 Range/Units 04:08 04:08 12:17 RBC 3.42 L (4.10-5.20) X 10*6/uL Hgb 10.6 L (12.0-15.0) g/dL Hct 34.6 L (37.2-46.3) % MCV 101.2 H (80.0-97.0) FL MCHC 30.6 L (32.0-37.0) g/dL RDW 15.0 H (11.5-14.5) % Plt Count 111 L (140-440) X 10*3/uL Lymphocytes # 0.73 L (0.90-5.00) X 10*3/uL Monocytes # 1.07 H (0.20-1.00) X 10*3/uL Est GFR (CKD-EPI) 44 L (>=60) Glucose 120 H (70-110) mg/dL POC Glucose (mg/dL) 148 H (70-110) mg/dL Calcium 8.2 L (8.7-10.3) mg/dL 04/28/24 04/28/24 Range/Units 16:54 20:07 RBC (4.10-5.20) X 10*6/uL Hgb (12.0-15.0) g/dL Hct (37.2-46.3) % MCV (80.0-97.0) FL MCHC (32.0-37.0) g/dL RDW (11.5-14.5) % Plt Count (140-440) X 10*3/uL Lymphocytes # (0.90-5.00) X 10*3/uL Monocytes # (0.20-1.00) X 10*3/uL Est GFR (CKD-EPI) (>=60) Glucose (70-110) mg/dL POC Glucose (mg/dL) 187 H 153 H (70-110) mg/dL Calcium (8.7-10.3) mg/dL Microbiology - Last 24 Hours (Table) 04/26/24 09:24 Blood Culture - Preliminary Blood 04/26/24 05:29 Urine Culture - Final Urine,Voided Escherichia coli
[2024-04-29 13:17] LABS: Glucose,Whole Blood 133 mg/dL (70-110)
--- NOTE | 2024-04-29 14:09 | P.PN ---
Subjective Progress Note Date: 04/29/24 Principal diagnosis: Reason for follow-up is E. coli UTI Patient is a 74-year-old female with a past medical history significant for diabetes mellitus pavement heart failure atrial fibrillation anxiety depression patient has been brought to the hospital after apparently patient did have a fall, the patient did have low-grade fever elevated white count positive UA concerning for symptomatic urinary tract infection. On today's evaluation that is 04/29/2024, patient has been afebrile, patient is breathing comfortably and is currently on 2 L nasal cannula oxygen, patient denies having any significant cough no chest pain, patient denies nausea vomiting or diarrhea and no abdominal pain. No new lab has been repeated today urine culture with E. coli blood culture ne gative Objective - Vital Signs Vital signs: Vital Signs Temp 98.5 F 04/29/24 07:21 Pulse 96 04/29/24 08:22 Resp 20 04/29/24 07:21 BP 138/79 04/29/24 07:21 Pulse Ox 95 04/29/24 08:12 FiO2 Intake & Output 04/28/24 04/29/24 04/29/24 18:59 06:59 18:59 Output Total 950 1525 Balance -950 -1525 Output: Urine 950 1525 Other: Voiding Method External Catheter External Catheter External Catheter # Voids 1 - Exam GENERAL DESCRIPTION: An elderly female lying in bed in no distress RESPIRATORY SYSTEM: Unlabored breathing , decreased breath sounds at bases HEART: S1 S2 regular rate and rhythm , ABDOMEN: Soft , no tenderness EXTREMITIES: No edema feet - Labs CBC & Chem 7: 04/28/24 04:08 04/28/24 04:08 Labs: Abnormal Lab Results - Last 24 Hours (Table) 04/28/24 04/28/24 04/28/24 Range/Units 12:17 16:54 20:07 POC Glucose (mg/dL) 148 H 187 H 153 H (70-110) mg/dL Microbiology - Last 24 Hours (Table) 04/26/24 09:24 Blood Culture - Preliminary Blood 04/26/24 05:29 Urine Culture - Final Urine,Voided Escherichia coli Assessment and Plan (1) Sepsis Current Visit: Yes Status: Acute Code(s): A41.9 - SEPSIS, UNSPECIFIED ORGANISM SNOMED Code(s): 00840126 (2) UTI (urinary tract infection) Current Visit: Yes Status: Acute Code(s): N39.0 - URINARY TRACT INFECTION, SITE NOT SPECIFIED SNOMED Code(s): 08031529 Plan: 1patient presented to hospital with sepsis in this patient who did have fever tachycardia elevated white count meeting criteria for SIRS source is likely UTI did have a positive UA currently growing gram-negative likely enteric gram- negative pathogen. Patient urine has been finalized with E. coli that is a sensitive pathogen 2patient seem to have some clinical improvement, to continue with Rocephin while inpatient will transition over to oral Ceftin on discharge Dictation was produced using [employer] dictation software. please excuse any grammatical, word or spelling errors. Time with Patient: Less than 30
--- NOTE | 2024-04-29 14:28 | MR ---
EXAMINATION TYPE: MR brain/cspine wo DATE OF EXAM: 04/29/2024 1:24 PM COMPARISON: CT brain C-spine 04/26/2024 CLINICAL INDICATION: Female, 74 years old with history of right arm weakness with recent fall, Right Arm Weakness with recent fall IV Contrast: None TECHNIQUE: Multiplanar, multisequence imaging of the brain and cervical spine is performed without ad ministration of intravenous contrast. Motion degraded examination. FINDINGS: The starkey-white junctions, ventricular system, basal cisterns appear unremarkable. Age-appro priate cerebral volume loss. Diffusion-weighted imaging shows no evidence of restricted diffusion to suggest acute/subacute infarct. Intracranial arterial flow voids are maintained. Midline structures s how no abnormality. Patchy areas of high T2/FLAIR signal intensity are seen within the periventricula r and subcortical white matter. The susceptibility weighted images do not reveal any evidence for frederick ro-hemorrhage. The bone marrow signal is within normal limits. The paranasal sinuses are unremarkable. Bilateral ap hakia. Alignment: The cervical vertebral bodies have preserved heights. Alignment is within normal limits gi srinath patient positioning. Bones: Type I Modic changes involving the endplates around the C6-C7 disc anteriorly. The remaining b one signal is within normal limits. Multilevel anterior osteophytosis with most prominent anterior os teophyte at C6-C7. Cord: The spinal cord is unremarkable with regards to their signal intensity and morphology. Discs: Multilevel disc desiccation is present. C2-C3: No significant disc pathology. The spinal canal is patent. No neural foraminal stenosis. C3-C4: Broad-based disc bulge with minimal effacement of anterior thecal sac. Uncovertebral joint hy pertrophy with facet arthropathy resulting in moderate left neural foraminal stenosis. The right neur al foramen is patent. C4-C5: Broad-based disc bulge with minimal effacement of anterior thecal sac. Uncovertebral joint hy pertrophy with facet arthropathy resulting in moderate left and mild right neural foraminal stenosis. C5-C6: No significant disc pathology. The spinal canal is patent. Bilateral facet arthropathy result ing in mild right neuroforaminal stenosis. The left neural foramen is patent. C6-C7: Broad-based disc bulge with mild effacement of the anterior thecal sac. Uncovertebral joint hy pertrophy resulting in moderate bilateral neural foramen stenosis. C7-T1: Broad-based disc bulge with mild effacement of anterior thecal sac. No significant neural fora wali stenosis. Other: Retropharyngeal course of the bilateral common carotid arteries. IMPRESSION: Motion degraded examination. 1. No evidence of acute/subacute infarct or intracranial mass. 2. Nonspecific white matter changes, likely related to small vessel ischemic disease. 3. Mild multilevel degenerative disc disease and osteoarthritic change as described above. This is m ost pronounced at C6-C7 with mild central canal stenosis. Varying degrees of neural foraminal stenosi s as described above. [facility], , 04/29/2024 2:25 PM
--- NOTE | 2024-04-29 15:26 | P.PN ---
Subjective Progress Note Date: 04/29/24 SURGICAL PROGRESS NOTE CHIEF COMPLAINT: Fall HISTORY OF PRESENT ILLNESS: Surgical service following in regards to patient's anemia. Patient has not had a bowel movement since admission. She denies any b lood in her stools at home or any melanotic stools. Denies any abdominal pain. Patient's last colonoscopy at [facility] was from 2019 reported a transverse colon polyp status post polypectomy left-sided diverticulosis and grade 2 internal hemorrhoids. Last hemoglobin stable at 10.6. Fecal occult blood has not been collected yet. PHYSICAL EXAM: VITAL SIGNS: Reviewed. GENERAL: Well-developed in no acute distress. HEENT: No sclera icterus. Extraocular movements grossly intact. Moist buccal mucosa. Head is atraumatic, normocephalic. ABDOMEN: Soft. Nondistended. Nontender. NEUROLOGIC: Alert and oriented. Cranial nerves II through XII grossly intact. ASSESSMENT: 1. Anemia, with no active bleeding 2. Iron deficiency anemia PLAN: -No plans for endoscopy -Patient is not interested in any endoscopic intervention -Okay to continue Xarelto -Continue iron supplement Physician Building Manager note has been reviewed by physician. Signing provider agrees with the documented findings, assessment, and plan of care. I have personally seen and examined the patient, reviewed the MAINTENANCE PERSON /PAs history, exam and MDM and agree with the assessment and plan as written. Based on total visit time, I have performed more than 50% of the visit. As above: Patient without active bleeding. Last colonoscopy from [facility] noted in 2019. Patient should have outpatient endoscopy consid ered. She is not interested in having that done currently and I think that is reasonable. Will sign off. Please reconsult if needed. Objective - Vital Signs Vital signs: Vital Signs Temp 97.5 F L 04/29/24 13:58 Pulse 92 04/29/24 15:16 Resp 22 04/29/24 13:58 BP 155/85 04/29/24 13:58 Pulse Ox 96 04/29/24 13:58 FiO2 Intake & Output 04/28/24 04/29/24 04/29/24 18:59 06:59 18:59 Output Total 950 1525 Balance -950 -1525 Output: Urine 950 1525 Other: Voiding Method External Catheter External Catheter External Catheter # Voids 1 - Labs CBC & Chem 7: 04/30/24 07:03 04/30/24 07:03 Labs: Abnormal Lab Results - Last 24 Hours (Table) 04/28/24 04/28/24 04/29/24 Range/Units 16:54 20:07 13:16 POC Glucose (mg/dL) 187 H 153 H 133 H (70-110) mg/dL Microbiology - Last 24 Hours (Table) 04/26/24 09:24 Blood Culture - Preliminary Blood 04/26/24 05:29 Urine Culture - Final Urine,Voided Escherichia coli
[2024-04-29 17:15] LABS: Glucose,Whole Blood 120 mg/dL (70-110)
[2024-04-29 20:31] LABS: Glucose,Whole Blood 151 mg/dL (70-110)
[2024-04-30 07:01] LABS: Glucose,Whole Blood 113 mg/dL (70-110)
--- NOTE | 2024-04-30 07:04 | P.PN ---
Subjective Progress Note Date: 04/29/24 This is a pleasant 74 years old female with past medical history of multiple medical problems including A-fib. Patient somewhat is forgetful about her history and medication. States that her daughter is her guardian who take care of her medication. She knows she takes blood thinner but she is not sure for what reason or what it is. She presents because of recurrent fall. She states she fell in her bathroom, she slipped and hit her head. She went to urinate and she has been complaining from discomfort urination and dysuria. Also patient was feeling short of breath of 1 day duration, with dry cough but no chest pain. Of note patient also was in the emergency room for recurrent fall on 02/25 and 03/04 this month. On admission patient denies abdominal complaints. No headache or dizziness currently but she told me she feels her left upper extremity was weak. She states she uses oxygen at home. And complains from mild pain in her left leg She denies smoking alcohol or illicit drugs. On admission she had low-grade fever of 100.1. Also she has mild leukocytosis of 11.4, she has 1 blood test 1 year ago with WBC 13.2 Hemoglobin 10.7, platelet count 130 Creatinine 1.7, previously was 1.91 time on 03/04/[address] is negative for acute process Chest x-ray is showing cardiomegaly with no vascular congestion Liver enzymes are unremarkable, INR is 1.2. EKG showing A-fib with a heart rate of 38 Urine analysis suspicious for UTI, urine culture is pending Influenza A and type B, RSV, SARS (coronavirus) are undetected She received 1 dose of Rocephin in the emergency room 04/27 Patient still with malaise, she is complaining from headache 8/10 on the left side of the head No new weakness or numbness. She is complaining from weakness in the left upper extremity but states this is for a while without specification. Patient is with atrial fibrillation and she was not on anticoagulation, she was on aspirin and Plavix at home. Xarelto was started this morning after I could not to send the monitor and started by structural iron worker Therefore we consulted neurology service who recommended MRI of the brain and cervical spine, we will follow-up the results. Currently on exam there is no weakness in the upper extremities but she has many risk factors, however patient already started on Xarelto Patient also with evidence of iron deficiency anemia. Will check occult blood in stool Echocardiogram showing cardiomyopathy with ejection fraction of 40% with severe right ventricular dilatation and moderate to severe tricuspid regurgitation and severe pulmonary hypertension at 64 mmHg Blood pressure is stable, she is mildly tachycardic She has low-grade fever Leukocytosis improved down to 6.8, hemoglobin 9.7 but also with evidence of hemodilution Platelet count 111. Creatinine improved 1.9 down to 1.4 We will hold fluids for now Bladder scan 167 mL Check chest x-ray in the morning Continue with ceftriaxone Also will consult general surgery and infectious disease Prognosis remains guarded 04/28 pt complains from headache today 02/11, she does not look in distress she is generally weakn mildly tachypneic leg cellulitis is better in the left leg mri of the brain is pending pt is placed on xarelto anyway for her a fib 04/29/2024 Patient is seen this morning continued on IV antibiotics with ID following for UTI. Cultures showing ecoli with sensitivity. Awaiting PT/OT eval and will need ecf on discharge for recurrent falls, weakness, and UTI. Case management following and has submitted insurance authorization. Currently pending. continue to reorient as patient remains pleasantly confused. Unsure if this is baseline. Appears so. Patient does have a legal guardian as well. Review of systems: Constitutional: No reports of fatigue, fever, or chills Cardiovascular: No reports of chest pain or palpitations Respiratory: No reports of shortness of breath or cough GI: No reports of nausea, vomiting, or diarrhea : No reports of dysuria or retention Neurovascular: reports of generalized weakness and falls All medications have been reviewed Physical exam: GENERAL: The patient is alert and oriented x2, not in any acute distress. Well developed, elderly appearing, pleasantly confused. Generally weak with malaise HEENT: Pupils are round and equally reacting to light. EOMI. No scleral icterus. No conjunctival pallor. Normocephalic, atraumatic. No pharyngeal erythema. No thyromegaly. CARDIOVASCULAR: S1 and S2 present. No murmurs, rubs, or gallops. PULMONARY: Chest is clear to auscultation, no wheezing , no crackles. ABDOMEN: Soft, nontender, nondistended, normoactive bowel sounds. No palpable organomegaly. MUSCULOSKELETAL: No joint swelling or deformity. -EXTREMITIES: No cyanosis, clubbing, or pedal edema. Left leg is more red and warm to the right side suspicious for cellulitis NEUROLOGICAL: Gross neurological examination did not reveal any focal deficits. diffusely weak SKIN: No rashes. no petechiae. Assessment: Recurrent fall at home over the last 1 to 2 weeks Acute urinary tract infection, symptomatic, poa with ecoli Acute cellulitis of the left lower extremity Sepsis with fever and leukocytosis, poa due to cellulitis and UTI A-fib with slow heart rate Severe pulmonary hypertension Patient also complaining from left upper extremity weakness, ruled out TIA. Currently no weakness on examination CHF, chronic Obesity with BMI 45.2 Iron deficiency anemia Forgetfulness, possible dementia. Also patient has guardian Hard of hearing Plan: Continue with ceftriaxone 2 g daily and follow-up culture results showing ecoli ID following cardiology team following recurrent falls and bradycardia in view of her A-fib. Patient was started on Xarelto Patient evaluated by surgery teamfor her anemia especially started on Xarelto now, then recommend to continue monitoring with iron supplementation for now, no surgical intervention planned Neurology following GI prophylaxis: Pepcid DVT prophylaxis PT/OT Prognosis is definitely guarded and will need ecf. Case management following and placed referrals The impression and plan of care has been dictated by Tricia Mcgill, Nurse Pract itioner as directed. Dr. Jad MD I have performed a history and examination and MDM of this patient, discussed the same with the dictator, and agree with the dictator's assessment and plan as written ,documented as a scribe. Based on total visit time, I have performed more than 50% of the visit. Objective - Vital Signs Vital signs: Vital Signs Temp 97.5 F L 04/29/24 13:58 Pulse 96 04/29/24 15:27 Resp 22 04/29/24 13:58 BP 155/85 04/29/24 13:58 Pulse Ox 96 04/29/24 13:58 FiO2 Intake & Output 04/28/24 04/29/24 04/29/24 18:59 06:59 18:59 Output Total 950 1525 Balance -950 -1525 Output: Urine 950 1525 Other: Voiding Method External Catheter External Catheter External Catheter # Voids 1 - Labs CBC & Chem 7: 04/28/24 04:08 04/28/24 04:08 Labs: Abnormal Lab Results - Last 24 Hours (Table) 04/28/24 04/28/24 04/29/24 Range/Units 16:54 20:07 13:16 POC Glucose (mg/dL) 187 H 153 H 133 H (70-110) mg/dL Microbiology - Last 24 Hours (Table) 04/26/24 09:24 Blood Culture - Preliminary Blood 04/26/24 05:29 Urine Culture - Final Urine,Voided Escherichia coli
[2024-04-30 07:17] LABS: Basophils % (A) 1 %; Eosinophils # (A) 0.1 k/uL (0-0.7); Eosinophils % (A) 2 %; HCT 37.9 % (34.0-46.0); HGB 11.4 gm/dL (11.4-16.0); Hypochromasia Marked; Lymphocytes # (A) 1.1 k/uL (1.0-4.8); Lymphocytes % (A) 17 %; MCH 31.2 pg (25.0-35.0); MCV 103.8 fL (80.0-100.0); Macrocytosis Slight; Mean Platelet Volume 7.5; Monocytes # (A) 0.5 k/uL (0-1.0); Monocytes % (A) 8 %; Neutrophils # (A) 4.6 k/uL (1.3-7.7); Neutrophils % (A) 70 %; Platelet Count 155 k/uL (150-450); RBC 3.65 m/uL (3.80-5.40); RDW 14.9 % (11.5-15.5); WBC 6.5 k/uL (3.8-10.6)
[2024-04-30 08:28] LABS: ALT 18 U/L (4-34); AST 24 U/L (14-36); African American GFR (CKD) 55 (>60 ml/min/1.73 sqM); Albumin 3.5 g/dL (3.5-5.0); Albumin/Globulin Ratio 1.2; Alkaline Phosphatase 69 U/L (38-126); Anion Gap 7 mmol/L; Blood Urea Nitrogen 23 mg/dL (7-17); Calcium 9.1 mg/dL (8.4-10.2); Carbon Dioxide 28 mmol/L (22-30); Chloride 104 mmol/L (98-107); Globulin 2.9 g/dL; Glucose 114 mg/dL (74-99); Magnesium 2.4 mg/dL (1.6-2.3); Non-African American GFR(CKD) 48 (>60 ml/min/1.73 sqM); Potassium 4.9 mmol/L (3.5-5.1); Sodium 139 mmol/L (137-145); Total Bilirubin 0.5 mg/dL (0.2-1.3); Total Protein 6.4 g/dL (6.3-8.2)
--- NOTE | 2024-04-30 11:16 | P.DS ---
Providers Date of admission: 04/28/24 13:01 Expected date of discharge: 04/30/24 Attending physician: Pierre Velez Consults: 04/26/24 08:31 Consult Physician Routine Consulting Provider: Ghulam Lira Consult Reason/Comments: recurrent fall, RUE weakness Do you want consulting provider notified?: Yes, Notify in am 04/26/24 08:32 Consult Physician Routine Consulting Provider: Frank Mark Consult Reason/Comments: fall, a fib with slow rate Do you want consulting provider notified?: Yes 04/27/24 12:44 Consult Physician Routine Consulting Provider: Alexa Allen Consult Reason/Comments: sepsis Do you want consulting provider notified?: Yes Primary care physician: Nahid Byrne [facility] Course: Final diagnosis Recurrent fall at home over the last 1 to 2 weeks Acute urinary tract infection, symptomatic, poa with ecoli Acute cellulitis of the left lower extremity Sepsis with fever and leukocytosis, poa due to cellulitis and UTI A-fib with slow heart rate Severe pulmonary hypertension Patient also complaining from left upper extremity weakness, ruled out TIA. Currently no weakness on examination CHF, chronic Obesity with BMI 45.2 Iron deficiency anemia Forgetfulness, likely dementia. Patient does have a legal guardian Hard of hearing GI prophylaxis DVT prophylaxis No code Discharge disposition Patient is being discharged in a stable condition with guarded prognosis to [facility]. Patient will follow-up with Dr. Byrne in the outpatient setting upon discharge. Patient is to continue with oral Ceftin twice daily for the next 1 week and outpatient follow-up with neurology as well as general surgery and cardiology outpatient as scheduled. Total time taken is greater than 35 minutes. Hospital course This is a 74year-old female who was recently admitted with recurrent falls with sepsis and fever with elevated white count with features of sepsis, present on admission being closely monitored. Patient started on antibiotics and urine cul ture finalized showing E. coli with sensitivities. Infectious disease following patient maintained on ceftriaxone and will transition to oral Ceftin on discharge. Patient also noted to have significant cardiac comorbidities with CHF maintained on diuretics although kidney functions were mildly compromised on admission. Recommend holding diuretics until repeat labs in the next few days. Monitor lower extremities closely and use compression stockings and/or Ashu wraps from the toes up to the knees and elevate while at rest. Continue zinc paste to the bottom folds and frequent offloading. Patient also evaluated by neurology with concerns of left upper extremity weakness and TIA ruled out. Patient with likely dementia has a legal guardian and has had recurrent falls with generalized weakness. Patient evaluated by physical therapy recommending rehab and patient is agreeable along with guardian. Patient has been accepted at [facility] and will be discharged today. Please refer to other consultation notes for further HPI. Currently no reports of chest pain, shortness of breath, or palpitations. Patient is afebrile. No reports of nausea or vomiting and patient is tolerating diet. Patient will be going to [facility] today. Guarded prognosis given significant comorbidities. Physical exam: Gen: This is a 74-year-old female who is awake, alert and oriented x 1-2, baseline, well-developed, elderly appearing, morbidly obese HEENT: Head is atraumatic, normocephalic. Pupils equal, round. Sclerae is anicteric. NECK: Supple. No JVD. No lymphadenopathy. No thyromegaly. LUNGS: Diminished breath sounds bilaterally otherwise clear to auscultation. No wheezes or rhonchi. No intercostal retractions. HEART: S1, S2 are muffled ABDOMEN: Soft. Obese bowel sounds are present. No masses. No tenderness. EXTREMITIES: No pedal edema. No calf tenderness. Bilateral lower extremity swelling, left worse than right, showing some improvement NEUROLOGICAL: Patient is awake, alert and oriented x1-2. Baseline cranial nerves 2 through 12 are grossly intact. Diffusely weak Please refer to medication reconciliation sheet for a list of medications. The impression and plan of care has been dictated by Tricia Mcgill, Nurse Practitioner as directed. Dr. Jad MD I have performed a history and examination and MDM of this patient, discussed the same with the dictator, and agree with the dictator's assessment and plan as written ,documented as a scribe. Based on total visit time, I have performed more than 50% of the visit. Patient Condition at Discharge: Stable Plan - Discharge Summary Discharge Rx Participant: No New Discharge Prescriptions: New cefuroxime axetiL [Ceftin] 500 mg PO BID 7 Days #14 tab Ipratropium-Albuterol Nebulize [Duoneb 0.5 mg-3 mg/3 ml Soln] 3 ml INHALATION RT-QID each INSULIN ASPART (NovoLOG) [NovoLOG (formulary)] 0 unit SQ ACHS each Rivaroxaban [Xarelto] 15 mg PO W/BRKFST tab Ipratropium-Albuterol Nebulize [Duoneb 0.5 mg-3 mg/3 ml Soln] 3 ml INHALATION RT-Q2H PRN each PRN Reason: Shortness Of Breath Or Wheezing Metoprolol Tartrate [Lopressor] 50 mg PO BID tab Nystatin 100,000 Unit/gm Powd [Mycostatin Powder] 1 applic TOPICAL BID each Continue [place]-3/Dha/Epa/Fish Oil [[place]-3 Fish Oil 1,000 mg Sfgl] 1 cap PO DAILY Multivit-Min/Iron/Folic/Lutein [Centrum Silver Women Tablet] 1 tab PO DAILY Docusate [Colace] 100 mg PO BID PRN PRN Reason: Constipation Aspirin EC [Ecotrin Low Dose] 81 mg PO DAILY traZODone HCL [Desyrel] 50 mg PO HS Levothyroxine Sodium [Synthroid] 25 mcg PO DAILY Empagliflozin [Jardiance] 10 mg PO DAILY Ergocalciferol [Vitamin D2 (1250 Mcg = 53503 Iu)] 1,250 mcg PO ALONSO Ascorbic Acid [Vitamin C] 500 mg PO DAILY Ferrous Sulfate [Iron (65 MG Elemental)] 325 mg PO DAILY Pantoprazole [Protonix] 40 mg PO AC-BID Rosuvastatin Calcium [Crestor] 5 mg PO DAILY Divalproex [Depakote] 250 mg PO BID DULoxetine HCL [Cymbalta] 30 mg PO DAILY allopurinoL [Zyloprim] 300 mg PO DAILY Folic Acid 1 mg PO DAILY Acetaminophen-Codeine 300-30mg [Tylenol w/codeine #3] 1 tab PO BID Albuterol Nebulized [Ventolin Nebulized] 2.5 mg INHALATION Q6H Discontinued Clopidogrel [Plavix] 75 mg PO DAILY Metoprolol Succinate (ER) [Toprol Xl] 50 mg PO DAILY Amiodarone [Cordarone] 200 mg PO DAILY Bumetanide [Bumex] 1 mg PO DAILY Discharge Medication List Acetaminophen-Codeine 300-30mg [Tylenol w/codeine #3] 1 tab PO BID 04/26/24 [History] Albuterol Nebulized [Ventolin Nebulized] 2.5 mg INHALATION Q6H 04/26/24 [History] Ascorbic Acid [Vitamin C] 500 mg PO DAILY 04/26/24 [History] Aspirin EC [Ecotrin Low Dose] 81 mg PO DAILY 04/26/24 [History] DULoxetine HCL [Cymbalta] 30 mg PO DAILY 04/26/24 [History] Divalproex [Depakote] 250 mg PO BID 04/26/24 [History] Docusate [Colace] 100 mg PO BID PRN 04/26/24 [History] Empagliflozin [Jardiance] 10 mg PO DAILY 04/26/24 [History] Ergocalciferol [Vitamin D2 (1250 Mcg = 41251 Iu)] 1,250 mcg PO ALONSO 04/26/24 [History] Ferrous Sulfate [Iron (65 MG Elemental)] 325 mg PO DAILY 04/26/24 [History] Folic Acid 1 mg PO DAILY 04/26/24 [History] Levothyroxine Sodium [Synthroid] 25 mcg PO DAILY 04/26/24 [History] Multivit-Min/Iron/Folic/Lutein [Centrum Silver Women Tablet] 1 tab PO DAILY 04/26/24 [History] [place]-3/Dha/Epa/Fish Oil [[place]-3 Fish Oil 1,000 mg Sfgl] 1 cap PO DAILY 04/26/24 [History] Pantoprazole [Protonix] 40 mg PO AC-BID 04/26/24 [History] Rosuvastatin Calcium [Crestor] 5 mg PO DAILY 04/26/24 [History] allopurinoL [Zyloprim] 300 mg PO DAILY 04/26/24 [History] traZODone HCL [Desyrel] 50 mg PO HS 04/26/24 [History] INSULIN ASPART (NovoLOG) [NovoLOG (formulary)] 0 unit SQ ACHS each 04/30/24 [Rx] Ipratropium-Albuterol Nebulize [Duoneb 0.5 mg-3 mg/3 ml Soln] 3 ml INHALATION RT-Q2H PRN each 04/30/24 [Rx] Ipratropium-Albuterol Nebulize [Duoneb 0.5 mg-3 mg/3 ml Soln] 3 ml INHALATION RT-QID each 04/30/24 [Rx] Metoprolol Tartrate [Lopressor] 50 mg PO BID tab 04/30/24 [Rx] Nystatin 100,000 Unit/gm Powd [Mycostatin Powder] 1 applic TOPICAL BID each 04/30/24 [Rx] Rivaroxaban [Xarelto] 15 mg PO W/BRKFST tab 04/30/24 [Rx] cefuroxime axetiL [Ceftin] 500 mg PO BID 7 Days #14 tab 04/30/24 [Rx] Follow up Appointment(s)/Referral(s): Nahid Byrne MD [Primary Care Provider] - 1-2 days Activity/Diet/Wound Care/Special Instructions: Patient is going to [facility] as tolerated Follow-up with neurology outpatient Follow-up primary care provider on discharge Continue with antibiotics for 7 days Continue holding diuretics until follow-up repeat labs Recommend CBC, CMP, magnesium in 2 to 3 days Continue consistent carb diet Continue monitoring Accu-Cheks before meals and at bedtime NovoLog sliding scale 0-150 equals 0 units 151-200 equals 2 units 201-250 equals 4 units 251-300 equals 6 units 301-350 equals 8 units 351-400 equals 10 units Please notify provider if blood sugar is 400 or above Discharge Disposition: TRANSFER TO SNF/ECF
[2024-04-30 12:05] LABS: Glucose,Whole Blood 131 mg/dL (70-110)
[2024-04-30 13:28] VITALS: BP 129/95; PULSE 106; RESP 20; TEMP 97.2
--- NOTE | 2024-05-01 12:47 | P.PN ---
Subjective Progress Note Date: 04/30/24 Principal diagnosis: Reason for follow-up is E. coli UTI Patient is a 74-year-old female with a past medical history significant for diabetes mellitus pavement heart failure atrial fibrillation anxiety depression patient has been brought to the hospital after apparently patient did have a fall, the patient did have low-grade fever elevated white count positive UA concerning for symptomatic urinary tract infection. On today's evaluation that is 04/30/2024, Patient is afebrile this morning patient denies having any chest pain shortness of breath or cough, the patient is currently on 2 L nasal cannula oxygen, patient denies any abdominal pain no diarrhea no nausea no vomiting, patient mention feeling better wants to go home. Patient white count 6.5, creatinine is 1.15 urine with E. coli blood culture negative Objective - Vital Signs Vital signs: Vital Signs Temp 97.5 F L 04/30/24 07:02 Pulse 108 H 04/30/24 11:25 Resp 16 04/30/24 07:02 BP 147/83 04/30/24 07:02 Pulse Ox 97 04/30/24 07:32 FiO2 Intake & Output 04/29/24 04/30/24 04/30/24 18:59 06:59 18:59 Output Total 300 1000 Balance -300 -1000 Output: Urine 300 1000 Other: Voiding Method External Catheter Bedside Commode Bedside Commode Diaper Diaper External Catheter External Catheter # Voids 1 1 # Bowel Movements 1 1 - Exam GENERAL DESCRIPTION: An elderly female lying in bed in no distress RESPIRATORY SYSTEM: Unlabored breathing , decreased breath sounds at bases HEART: S1 S2 regular rate and rhythm , ABDOMEN: Soft , no tenderness EXTREMITIES: No edema feet - Labs CBC & Chem 7: 04/30/24 07:03 04/30/24 07:03 Labs: Abnormal Lab Results - Last 24 Hours (Table) 04/29/24 04/29/24 04/29/24 Range/Units 13:16 17:11 20:30 RBC (3.80-5.40) m/uL MCV (80.0-100.0) fL MCHC (31.0-37.0) g/dL BUN (7-17) mg/dL Creatinine (0.52-1.04) mg/dL Glucose (74-99) mg/dL POC Glucose (mg/dL) 133 H 120 H 151 H (70-110) mg/dL Magnesium (1.6-2.3) mg/dL 04/30/24 04/30/24 04/30/24 Range/Units 07:00 07:03 07:03 RBC 3.65 L (3.80-5.40) m/uL MCV 103.8 H (80.0-100.0) fL MCHC 30.0 L (31.0-37.0) g/dL BUN 23 H (7-17) mg/dL Creatinine 1.15 H (0.52-1.04) mg/dL Glucose 114 H (74-99) mg/dL POC Glucose (mg/dL) 113 H (70-110) mg/dL Magnesium 2.4 H (1.6-2.3) mg/dL 04/30/24 Range/Units 12:04 RBC (3.80-5.40) m/uL MCV (80.0-100.0) fL MCHC (31.0-37.0) g/dL BUN (7-17) mg/dL Creatinine (0.52-1.04) mg/dL Glucose (74-99) mg/dL POC Glucose (mg/dL) 131 H (70-110) mg/dL Magnesium (1.6-2.3) mg/dL Microbiology - Last 24 Hours (Table) 04/26/24 09:24 Blood Culture - Preliminary Blood Assessment and Plan (1) Sepsis Status: Acute Code(s): A41.9 - SEPSIS, UNSPECIFIED ORGANISM SNOMED Code(s): 34878434 (2) UTI (urinary tract infection) Status: Acute Code(s): N39.0 - URINARY TRACT INFECTION, SITE NOT SPECIFIED SNOMED Code(s): 09437212 Plan: 1patient presented to hospital with sepsis in this patient who did have fever tachycardia elevated white count meeting criteria for SIRS source is likely UTI did have a positive UA currently growing gram-negative likely enteric gram- negative pathogen. Patient urine has been finalized with E. coli that is a sensitive pathogen 2patient did have clinical improvement blood culture have been negative she will finish therapy short course of oral Ceftin on discharge Dictation was produced using [employer] software. please excuse any grammatical, word or spelling errors. Time with Patient: Less than 30
== END 2024-04-30 16:32 | DRG 871 ==
LOC: EC 03:20 → 5NMEDONC 06:15 → OBSVTOIN 04-28 13:01
PROVIDERS: ADMIT Hospitalist; ATTEND Hospitalist
DX: A41.9 Sepsis, unspecified organism (principal); G93.41 Metabolic encephalopathy; N39.0 Urinary tract infection, site not specified; L03.116 Cellulitis of left lower limb; N17.9 Acute kidney failure, unspecified; Z68.42 Body mass index [BMI] 45.0-49.9, adult; R29.6 Repeated falls; B96.20 Unspecified Escherichia coli [E. coli] as the cause of diseases classified elsewhere; E66.9 Obesity, unspecified; N18.9 Chronic kidney disease, unspecified; K59.00 Constipation, unspecified; H91.90 Unspecified hearing loss, unspecified ear; J44.9 Chronic obstructive pulmonary disease, unspecified; I50.810 Right heart failure, unspecified; R65.20 Severe sepsis without septic shock; F03.90 Unspecified dementia, unspecified severity, without behavioral disturbance, psychotic disturbance, mood disturbance, and anxiety; S09.90XA Unspecified injury of head, initial encounter; W01.198A Fall on same level from slipping, tripping and stumbling with subsequent striking against other object, initial encounter; E11.22 Type 2 diabetes mellitus with diabetic chronic kidney disease; I27.29 Other secondary pulmonary hypertension; I48.0 Paroxysmal atrial fibrillation; I49.3 Ventricular premature depolarization; I25.10 Atherosclerotic heart disease of native coronary artery without angina pectoris; E11.69 Type 2 diabetes mellitus with other specified complication; Y92.002 Bathroom of unspecified non-institutional (private) residence as the place of occurrence of the external cause; Z79.02 Long term (current) use of antithrombotics/antiplatelets; Z79.4 Long term (current) use of insulin; Z79.82 Long term (current) use of aspirin; Z79.84 Long term (current) use of oral hypoglycemic drugs; Z79.890 Hormone replacement therapy; Z79.899 Other long term (current) drug therapy; D50.9 Iron deficiency anemia, unspecified
CPT/HCPCS: 36415; 70450; 70551; 71045; 72125; 72141; 80048; 80053; 80061; 81001; 82607; 82728; 82746; 83036; 83540; 83550; 83605; 83735; 83880; 84145; 84443; 85025; 85610; 85730; 87040; 87077; 87086; 87186; 87636; 93005; 93306; 94640; 94760; 96361; 96365; 96375; 99285

== ENCOUNTER 2024-05-10 12:16 | Emergency (ER) | payer MEDICARE, OTHER ==
[2024-05-10 12:26] VITALS: RESP 20; TEMP 97.7
--- NOTE | 2024-05-10 12:42 | ED ---
General Adult HPI - General Chief complaint: Skin/Abscess/Foreign Body Stated complaint: Mass on leg Time Seen by Provider: 05/10/24 12:21 Source: patient, EMS, RN notes reviewed, old records reviewed Mode of arrival: EMS - History of Present Illness Initial comments: 74-year-old female presenting with pain and swelling to the right groin. Patient currently at a intermediate, patient had complained of pain and was noted to have a swelling or mass to the right groin. She reports that she had a Watchman procedure done approximately 1 month ago. Patient states that the [facility] hman was done on 1016 at outside hospital. No reported fever. - Related Data Home Medications Medication Instructions Recorded Confirmed Albuterol Nebulized [Ventolin 2.5 mg INHALATION Q6H 04/26/24 04/26/24 Nebulized] Ascorbic Acid [Vitamin C] 500 mg PO DAILY 04/26/24 04/26/24 Aspirin EC [Ecotrin Low Dose] 81 mg PO DAILY 04/26/24 04/26/24 DULoxetine HCL [Cymbalta] 30 mg PO DAILY 04/26/24 04/26/24 Divalproex [Depakote] 250 mg PO BID 04/26/24 04/26/24 Docusate [Colace] 100 mg PO BID PRN 04/26/24 04/26/24 Empagliflozin [Jardiance] 10 mg PO DAILY 04/26/24 04/26/24 Ergocalciferol [Vitamin D2 (1250 1,250 mcg PO ALONSO 04/26/24 04/26/24 Mcg = 17356 Iu)] Ferrous Sulfate [Iron (65 MG 325 mg PO DAILY 04/26/24 04/26/24 Elemental)] Folic Acid 1 mg PO DAILY 04/26/24 04/26/24 Levothyroxine Sodium [Synthroid] 25 mcg PO DAILY 04/26/24 04/26/24 Multivit-Min/Iron/Folic/Lutein 1 tab PO DAILY 04/26/24 04/26/24 [Centrum Silver Women Tablet] [place]-3/Dha/Epa/Fish Oil [[place]-3 1 cap PO DAILY 04/26/24 04/26/24 Fish Oil 1,000 mg Sfgl] Pantoprazole [Protonix] 40 mg PO AC-BID 04/26/24 04/26/24 Rosuvastatin Calcium [Crestor] 5 mg PO DAILY 04/26/24 04/26/24 allopurinoL [Zyloprim] 300 mg PO DAILY 04/26/24 04/26/24 traZODone HCL [Desyrel] 50 mg PO HS 04/26/24 04/26/24 Previous Rx's Medication Instructions Recorded Acetaminophen-Codeine 300-30mg 1 tab PO BID PRN #4 tab 04/30/24 [Tylenol w/codeine #3] INSULIN ASPART (NovoLOG) [NovoLOG 0 unit SQ ACHS each 04/30/24 (formulary)] Ipratropium-Albuterol Nebulize 3 ml INHALATION RT-Q2H PRN each 04/30/24 [Duoneb 0.5 mg-3 mg/3 ml Soln] Ipratropium-Albuterol Nebulize 3 ml INHALATION RT-QID each 04/30/24 [Duoneb 0.5 mg-3 mg/3 ml Soln] Metoprolol Tartrate [Lopressor] 50 mg PO BID tab 04/30/24 Nystatin 100,000 Unit/gm Powd 1 applic TOPICAL BID each 04/30/24 [Mycostatin Powder] Rivaroxaban [Xarelto] 15 mg PO W/BRKFST tab 04/30/24 cefuroxime axetiL [Ceftin] 500 mg PO BID 7 Days #14 tab 04/30/24 Allergies Allergy/AdvReac Type Severity Reaction Status Date / Time No Known Allergies Allergy Verified 05/10/24 12:26 Review of Systems ROS Statement: Those systems with pertinent positive or pertinent negative responses have been documented in the HPI. ROS Other: All systems not noted in ROS Statement are negative. Past Medical History Past Medical History: Atrial Fibrillation, Heart Failure, COPD, Diabetes Mellitus, GI Bleed, Hearing Disorder / Deafness, Memory Impairment, Osteoarthritis (OA), Renal Disease, Respiratory Disorder, Sleep Apnea/CPAP/BIPAP, Thyroid Disorder, Vascular Disorder Additional Past Medical History / Comment(s): c pap machine at home History of Any Multi-Drug Resistant Organisms: None Reported Past Surgical History: Appendectomy, Heart Catheterization With Stent, Hysterectomy, Orthopedic Surgery Additional Past Surgical History / Comment(s): carpal tunnel, watchman device february 2024 Past Anesthesia/Blood Transfusion Reactions: No Reported Reaction Date of Last Stent Placement:: unk Past Psychological History: Anxiety, Depression Smoking Status: Never smoker Past Alcohol Use History: None Reported Past Drug Use History: None Reported - Past Family History Father History Unknown: Yes Additional Family Medical History / Comment(s): Mother Family Medical History: Dementia Additional Family Medical History / Comment(s): alzheimers, blind, General Exam General appearance: alert, in no apparent distress Head exam: Present: atraumatic, normocephalic Eye exam: Present: normal appearance, PERRL ENT exam: Present: normal exam Neck exam: Present: normal inspection. Absent: tenderness, meningismus Respiratory exam: Present: normal lung sounds bilaterally. Absent: respiratory distress, wheezes Cardiovascular Exam: Present: regular rate, normal rhythm GI/Abdominal exam: Present: soft. Absent: distended, tenderness Extremities exam: Present: tenderness (Palpable mass in the right groin tender to palpation, none pulsatile), pedal edema, other (No lower extremity erythema) Course Vital Signs 05/10/24 12:20 Temperature 97.7 F Pulse Rate 85 Respiratory 20 Rate Blood Pressure 117/74 O2 Sat by Pulse 98 Oximetry Medical Decision Making - Medical Decision Making Was pt. sent in by a medical professional or institution ([facility], [employer], urgent care, hospital, or intermediate...) When possible be specific @ -No Did you speak to anyone other than the patient for history (EMS, parent, family, police, friend...)? What history was obtained from this source @ -No Did you review nursing and triage notes (agree or disagree)? Why? @ -I reviewed and agree with nursing and triage notes Were old charts reviewed (outside hosp., previous admission, EMS record, old EKG, old radiological studies, urgent care reports/EKG's, intermediate records)? Report findings @ -No old charts were reviewed Differential Diagnosis:, Abscess, cellulitis, pseudoaneurysm, hematoma EKG interpreted by me (3pts min.). @ -As above X-rays interpreted by me (1pt min.). @ -None done CT interpreted by me (1pt min.). @ -None done U/S interpreted by me (1pt. min.). @ -Ultrasound of the right groin to assess for pseudoaneurysm shows a fluid collection reported as hematoma rather than pseudoaneurysm. What testing was considered but not performed or refused? (CT, X-rays, U/S, labs)? Why? @ -None What meds were considered but not given or refused? Why? @ -None Did you discuss the management of the patient with other professionals (professionals i.e. , PA, [employer], lab, RT, psych nurse, social sciences lecturer, odd job worker, teacher, security officer supervisor, pillowcase maker)? Give summary @ -No Was smoking cessation discussed for >3mins.? @ -No Was critical care preformed (if so, how long)? @ -No Were there social determinants of health that impacted care today? How? (Homelessness, low income, unemployed, alcoholism, drug addiction, transportation, low edu. Level, literacy, decrease access to med. care, residential, rehab)? @ -No Was there de-escalation of care discussed even if they declined (Discuss DNR or withdrawal of care, Hospice)? DNR status @ -No What co-morbidities impacted this encounter? (DM, HTN, Smoking, COPD, CAD, Cancer, CVA, ARF, Chemo, Hep., AIDS, mental health diagnosis, sleep apnea, morbid obesity)? @ -None Was patient admitted / discharged? Hospital course, mention meds given and route, prescriptions, significant lab abnormalities, going to OR and other pertinent info. @ -74-year-old female with pain and swelling in the right groin. Patient does have palpable mass in the right groin without overlying erythema.. Patient she states she had a Watchman procedure at outside hospital approximately 7 weeks ago. There is concern for pseudoaneurysm. Ultrasound is performed which is negative for pseudoaneurysm but shows fluid collection consistent with hematoma. Patient will monitor. She is stable for return to the intermediate for monitoring. Undiagnosed new problem with uncertain prognosis? @ -No Drug Therapy requiring intensive monitoring for toxicity (Heparin, Nitro, Insulin, Cardizem)? @ -No Were any procedures done? @ -No Diagnosis/symptom? @ -Groin hematoma Acute, or Chronic, or Acute on Chronic? @Acute Uncomplicated (without systemic symptoms) or Complicated (systemic symptoms)? @ -Default Side effects of treatment? @ -No Exacerbation, Progression, or Severe Exacerbation? @ -No Poses a threat to life or bodily function? How? (Chest pain, USA, CT, pneumonia, PE, COPD, DKA, ARF, appy, cholecystitis, CVA, Diverticulitis, Homicidal, Suicidal, threat to staff... and all critical care pts) @ -No Disposition Clinical Impression: Groin hematoma Disposition: HOME SELF-CARE Condition: Fair Instructions (If sedation given, give patient instructions): Hematoma (ED) Is patient prescribed a controlled substance at d/c from ED?: No Referrals: Nahid Byrne MD [Primary Care Provider] - 1-2 days Time of Disposition: 14:28
--- NOTE | 2024-05-10 13:50 | US ---
EXAMINATION TYPE: US lower ext pseudo artery RT DATE OF EXAM: 05/10/2024 COMPARISON: NONE CLINICAL INDICATION: Female, 74 years old with history of pain/swelling; Patient states having a surg ical intervention through right groin in April. Patient felt lump. TECHNIQUE:: Grayscale, color Doppler and spectral Doppler imaging performed of the groin, post cardia c catheter to assess for pseudoaneurysm. FINDINGS: SIDE PERFORMED: Right Color and Waveform Doppler performed to assess for the presence of pseudoaneurysm; Is there ultrasound evidence of a pseudoaneurysm: No Is there evidence of AV shunting: No Is there a fluid collection present: Complex nonvascular area - 9.4 x 7.7 x 3.6 cm IMPRESSION: 9.4 x 7.7 x 3.6 complex fluid collection the right groin with no blood flow. There is no evidence of pseudoaneurysm or of a AV shunt. Findings consistent with a remote groin hematoma. [facility], Workstation: [place] 05/10/2024 1:48 PM
[2024-05-10 15:48] VITALS: BP 105/75; PULSE 100
== END 2024-05-10 15:48 | disposition home or self-care (01) ==
LOC: EC 12:16
DX: S30.1XXA Contusion of abdominal wall, initial encounter (principal); X50.1XXA Overexertion from prolonged static or awkward postures, initial encounter
CPT/HCPCS: 93975; 99284

== ENCOUNTER 2024-08-01 10:18 | Day surgery (SDC) | payer MEDICARE, OTHER ==
[~2024-08-01 10:18] MED LIST: BENZOCAINE SPRAY 1 EACH MM PRN; MIDAZOLAM 2 MG/2 ML VIAL IV PRN; fentaNYL (PF) 50 MCG/ML 5 ML AMP IVP PRN
[2024-08-01 10:52] VITALS: TEMP 98.6
[2024-08-01] MEDS: IV FLUID CONTINUATION 1,000 ML IV ONE (11:00)
[2024-08-01] MEDS: MIDAZOLAM 2 MG/2 ML VIAL IVP ONE (11:15)
[2024-08-01] MEDS: BENZOCAINE SPRAY 1 EACH MM ONE (11:15)
[2024-08-01] MEDS: fentaNYL (PF) 50 MCG/1 ML VIAL IVP ONE (11:15)
[2024-08-01 13:07] VITALS: RESP 16
[2024-08-01 13:53] VITALS: BP 137/84; PULSE 94
--- NOTE | 2024-08-01 15:41 | P.TEE ---
Description of Procedure(s): Procedure performed: Transesophageal Echocardiogram with color flow doppler, pulsed wave doppler and continuous wave doppler, moderate conscious sedation Moderate conscious sedation: Moderate conscious sedation was supplied with direct supervision of myself using Versed and Fentanyl. Complications: none Indications: Status post Watchman PROCEDURE: After the risks, benefits and alternatives of the above mentioned procedure was explained in detail with the patient, informed consent was obtained. Patient was brought to the lab in a fasting state. Patient was given IV Versed and Fentanyl for sedation. The throat was sprayed with Hurricane to anesthetize the throat. A lubricated Omni probe was then introduced into the esophagus and stomach and multiple views were obtained. 2D echo with color flow doppler, pulsed wave doppler and continuous wave doppler was utilized. Agitated saline bubbles were injected to assess for any intra-atrial shunt. The probe was then removed. Patient tolerated the procedure well. Patient was transferred to the post procedure area in stable and satisfactory condition. FINDINGS: 1. The aortic valve is tricuspid and functioning normally. 2. The mitral valve appears be normal with mild regurgitation. 3. Tricuspid valve appears to be normal. 4. There is positive bubble study consistent with PFO 5. Left atrial appendage has Watchman device which is well seated with no leak and no thrombus 6. Left ventricular EF 35-40% with global hypokinesis
== END 2024-08-01 13:56 | disposition home or self-care (01) ==
LOC: CATHCVL 10:18
PROVIDERS: ATTEND Internal Medicine
DX: I48.19 Other persistent atrial fibrillation (principal); I42.9 Cardiomyopathy, unspecified; I11.0 Hypertensive heart disease with heart failure; I50.22 Chronic systolic (congestive) heart failure; I73.9 Peripheral vascular disease, unspecified; K92.2 Gastrointestinal hemorrhage, unspecified; N17.9 Acute kidney failure, unspecified; E11.9 Type 2 diabetes mellitus without complications; G47.33 Obstructive sleep apnea (adult) (pediatric); E66.9 Obesity, unspecified; Z68.42 Body mass index [BMI] 45.0-49.9, adult; E78.2 Mixed hyperlipidemia; Z79.82 Long term (current) use of aspirin; Z79.890 Hormone replacement therapy; Z79.899 Other long term (current) drug therapy
CPT/HCPCS: 93312; 93320; 93325; J2250; J3010